=== PATIENT | male | born 1960 | race Caucasian/White ===

== ENCOUNTER → 2017-03-28 | Outpatient (REF) | payer OTHER ==
[2017-03-28 12:57] LABS: MEAN CORPUSCULAR HEMOGLOBIN 32.9 pg (27.0-33.0); MEAN CORPUSCULAR HGB CONC 34.9 g/dl (32.0-36.5); MEAN CORPUSCULAR VOLUME 94.3 fl (80.0-96.0); RED CELL DISTRIBUTION WIDTH 12.5 % (11.5-14.5); WHITE BLOOD COUNT 4.6 K/mm3 (4.0-10.0)
[2017-03-28 13:28] LABS: ALBUMIN 3.6 GM/DL (3.2-5.2); ALBUMIN/GLOBULIN RATIO 1.13 (1.00-1.93); ALKALINE PHOSPHATASE 63 U/L (45-117); ALT/SGPT 34 U/L (12-78); ANION GAP 9 MEQ/L (8-16); AST/SGOT 26 U/L (15-37); BILIRUBIN,TOTAL 0.4 MG/DL (0.2-1.0); BLOOD UREA NITROGEN 16 MG/DL (7-18); CARBON DIOXIDE LEVEL 26 MEQ/L (21-32); CHLORIDE LEVEL 108 MEQ/L (98-107); CHOLESTEROL LEVEL 187 MG/DL (<200); CREATININE FOR GFR 1.01 MG/DL (0.70-1.30); GLOMERULAR FILTRATION RATE > 60.0 (>56); GLUCOSE, FASTING 88 MG/DL (70-105); POTASSIUM SERUM 4.4 MEQ/L (3.5-5.1); SODIUM LEVEL 143 MEQ/L (136-145); TOTAL PROTEIN 6.8 GM/DL (6.4-8.2); TRIGLYCERIDES LEVEL 113 MG/DL (<150); URIC ACID 5.7 MG/DL (3.5-7.2)
[2017-03-29 11:20] LABS: HEP C VIRUS AB SCREEN MEDICARE 0.2 INDEX (<0.8)
--- NOTE | 2017-04-13 09:50 | ECWPNAD ---
PATIENT NAME: MELVIN AGUAYO : 1960 GENDER: MALE VISIT DATE: 03/28/2017 DISCHARGE DATE: 03/28/17 0000 VISIT LOCKED DATE TIME: PHYSICIAN: RICO RADER RESOURCE: LAB [facility]AS REASON FOR APPOINTMENT 1. LABS PAST MEDICAL HISTORY HYPERTENSION HYPERLIPIDEMIA GOUT - MOSTLY IN FEET OSTEOARTHRITIS RT CARPAL TUNNEL ALLERGIES ALLOPURINOL: HIVES: ALLERGY ASSESSMENTS PROSTATE CANCER SCREENING - Z12.5 (PRIMARY) GOUT, UNSPECIFIED - M10.9 HYPERLIPIDEMIA, UNSPECIFIED - E78.5 ESSENTIAL (PRIMARY) HYPERTENSION - I10 ERECTILE DYSFUNCTION, UNSPECIFIED ERECTILE DYSFUNCTION TYPE - N52.9 NEED FOR HEPATITIS C SCREENING TEST - Z11.59 TREATMENT PROSTATE CANCER SCREENING LAB: PSA SCREENING PSA 2.20 (< 4.0 - NG/ML) GOUT, UNSPECIFIED LAB: CBC WBC 4.6 (4.0-10.0 - K/MM3) RBC 4.24 (4.30-6.10 - M/MM3) HEMOGLOBIN 14.0 (14.0-18.0 - G/DL) HEMATOCRIT 40.0 (42.0-52.0 - %) MCV 94.3 (80.0-96.0 - FL) MCH 32.9 (27.0-33.0 - PG) MCHC 34.9 (32.0-36.5 - G/DL) RDW 12.5 (11.5-14.5 - %) PLATELET COUNT 268 (150-450 - K/MM3) LAB: COMPREHENSIVE METABOLIC PROFILE GLUCOSE 88 (70-105 - MG/DL) BUN 16 (7-18 - MG/DL) CREATININE 1.01 (0.70-1.30 - MG/DL) GLOMERULAR FILTRATION RATE > 60.0 (>56 - ) SODIUM 143 (136-145 - MEQ/L) POTASSIUM 4.4 (3.5-5.1 - MEQ/L) CHLORIDE 108 (98-107 - MEQ/L) CARBON DIOXIDE 26 (21-32 - MEQ/L) CALCIUM 9.0 (8.5-10.1 - MG/DL) AST/SGOT 26 (15-37 - U/L) ALT/SGPT 34 (12-78 - U/L) ALK PHOS 63 (45-117 - U/L) BILIRUBIN,TOTAL 0.4 (0.2-1.0 - MG/DL) TOTAL PROTEIN 6.8 (6.4-8.2 - GM/DL) ALBUMIN 3.6 (3.2-5.2 - GM/DL) ALB/GLOB RATIO 1.13 (1.00-1.93 - ) LAB: LIPID PANEL (CARDIAC RISK) TRIGLYCERIDES 113 (<150 - MG/DL) CHOLESTEROL 187 (<200 - MG/DL) HDL CHOLESTEROL 84 (>40 - MG/DL) LDL CHOLESTEROL 80.4 (<100 - MG/DL) VAN-GHZ-EBHWNNCUCIK 103 ( - MG/DL) CHOL/HDL RATIO 2.226 (<5 - ) LAB: MICROALBUMIN RANDOM CREATININE URINE 219.0 ( - MG/DL) UR MICROALBUMIN 7.5 ( - MG/L) YESSY/CREAT RATIO 3.4 (0.0-30.0 - MCG/MG) LAB: URIC ACID URIC ACID 5.7 (3.5-7.2 - MG/DL) HYPERLIPIDEMIA, UNSPECIFIED LAB: CBC WBC 4.6 (4.0-10.0 - K/MM3) RBC 4.24 (4.30-6.10 - M/MM3) HEMOGLOBIN 14.0 (14.0-18.0 - G/DL) HEMATOCRIT 40.0 (42.0-52.0 - %) MCV 94.3 (80.0-96.0 - FL) MCH 32.9 (27.0-33.0 - PG) MCHC 34.9 (32.0-36.5 - G/DL) RDW 12.5 (11.5-14.5 - %) PLATELET COUNT 268 (150-450 - K/MM3) LAB: COMPREHENSIVE METABOLIC PROFILE GLUCOSE 88 (70-105 - MG/DL) BUN 16 (7-18 - MG/DL) CREATININE 1.01 (0.70-1.30 - MG/DL) GLOMERULAR FILTRATION RATE > 60.0 (>56 - ) SODIUM 143 (136-145 - MEQ/L) POTASSIUM 4.4 (3.5-5.1 - MEQ/L) CHLORIDE 108 (98-107 - MEQ/L) CARBON DIOXIDE 26 (21-32 - MEQ/L) CALCIUM 9.0 (8.5-10.1 - MG/DL) AST/SGOT 26 (15-37 - U/L) ALT/SGPT 34 (12-78 - U/L) ALK PHOS 63 (45-117 - U/L) BILIRUBIN,TOTAL 0.4 (0.2-1.0 - MG/DL) TOTAL PROTEIN 6.8 (6.4-8.2 - GM/DL) ALBUMIN 3.6 (3.2-5.2 - GM/DL) ALB/GLOB RATIO 1.13 (1.00-1.93 - ) LAB: LIPID PANEL (CARDIAC RISK) TRIGLYCERIDES 113 (<150 - MG/DL) CHOLESTEROL 187 (<200 - MG/DL) HDL CHOLESTEROL 84 (>40 - MG/DL) LDL CHOLESTEROL 80.4 (<100 - MG/DL) RRW-OAT-FTZEDOSBOTE 103 ( - MG/DL) CHOL/HDL RATIO 2.226 (<5 - ) LAB: MICROALBUMIN RANDOM CREATININE URINE 219.0 ( - MG/DL) UR MICROALBUMIN 7.5 ( - MG/L) YESSY/CREAT RATIO 3.4 (0.0-30.0 - MCG/MG) LAB: URIC ACID URIC ACID 5.7 (3.5-7.2 - MG/DL) ESSENTIAL (PRIMARY) HYPERTENSION LAB: CBC WBC 4.6 (4.0-10.0 - K/MM3) RBC 4.24 (4.30-6.10 - M/MM3) HEMOGLOBIN 14.0 (14.0-18.0 - G/DL) HEMATOCRIT 40.0 (42.0-52.0 - %) MCV 94.3 (80.0-96.0 - FL) MCH 32.9 (27.0-33.0 - PG) MCHC 34.9 (32.0-36.5 - G/DL) RDW 12.5 (11.5-14.5 - %) PLATELET COUNT 268 (150-450 - K/MM3) LAB: COMPREHENSIVE METABOLIC PROFILE GLUCOSE 88 (70-105 - MG/DL) BUN 16 (7-18 - MG/DL) CREATININE 1.01 (0.70-1.30 - MG/DL) GLOMERULAR FILTRATION RATE > 60.0 (>56 - ) SODIUM 143 (136-145 - MEQ/L) POTASSIUM 4.4 (3.5-5.1 - MEQ/L) CHLORIDE 108 (98-107 - MEQ/L) CARBON DIOXIDE 26 (21-32 - MEQ/L) CALCIUM 9.0 (8.5-10.1 - MG/DL) AST/SGOT 26 (15-37 - U/L) ALT/SGPT 34 (12-78 - U/L) ALK PHOS 63 (45-117 - U/L) BILIRUBIN,TOTAL 0.4 (0.2-1.0 - MG/DL) TOTAL PROTEIN 6.8 (6.4-8.2 - GM/DL) ALBUMIN 3.6 (3.2-5.2 - GM/DL) ALB/GLOB RATIO 1.13 (1.00-1.93 - ) LAB: LIPID PANEL (CARDIAC RISK) TRIGLYCERIDES 113 (<150 - MG/DL) CHOLESTEROL 187 (<200 - MG/DL) HDL CHOLESTEROL 84 (>40 - MG/DL) LDL CHOLESTEROL 80.4 (<100 - MG/DL) TXB-UDW-MTRPYQSRUDI 103 ( - MG/DL) CHOL/HDL RATIO 2.226 (<5 - ) LAB: MICROALBUMIN RANDOM CREATININE URINE 219.0 ( - MG/DL) UR MICROALBUMIN 7.5 ( - MG/L) YESSY/CREAT RATIO 3.4 (0.0-30.0 - MCG/MG) LAB: URIC ACID URIC ACID 5.7 (3.5-7.2 - MG/DL) NEED FOR HEPATITIS C SCREENING TEST LAB: HEPATITIS C VIRUS AB SCRN MEDICARE HEP C VIRUS AB SCRN MEDICARE 0.2 (<0.8 - INDEX) PROCEDURE CODES 22743 NO CHARGE VISIT DISPOSITION & COMMUNICATION ELECTRONICALLY SIGNED BY HAYLEE RIVERO ON 04/11/2017 AT 08:42 AM EDT DISCLAIMER : THIS IS A VISIT SUMMARY EXTRACTED FROM THE [facility] CHART. IT IS NOT A COPY OF THE [facility] PROGRESS NOTE. [place]
== END ==
LOC: M SFHCADAM 08:09
PROVIDERS: ATTEND Physician Assistant
DX: M10.9 Gout, unspecified (principal); E78.5 Hyperlipidemia, unspecified; I10 Essential (primary) hypertension; Z12.5 Encounter for screening for malignant neoplasm of prostate; Z11.59 Encounter for screening for other viral diseases
CPT/HCPCS: 80053; 80061; 82043; 84550; 85027; G0103; G0472

== ENCOUNTER → 2017-08-25 | Outpatient (REF) | payer OTHER ==
[2017-08-25 20:15] LABS: FREE T4 0.81 NG/DL (0.76-1.46)
== END ==
LOC: M SFHCADAM 12:01
DX: F41.0 Panic disorder [episodic paroxysmal anxiety] (principal)

== ENCOUNTER → 2017-08-30 | Outpatient (CLI) | payer OTHER | LOC: M RAD 12:54 | DX: N63.0 Unspecified lump in unspecified breast (principal) | CPT/HCPCS: 77066 ==

== ENCOUNTER 2017-11-23 11:02 | Inpatient (IN) | payer OTHER ==
[2017-11-23 12:36] LABS: HEMATOCRIT 42.8 % (42.0-52.0); HEMOGLOBIN 14.7 g/dl (13.5-17.5); MEAN CORPUSCULAR HEMOGLOBIN 31.8 pg (27.0-33.0); MEAN CORPUSCULAR HGB CONC 34.3 g/dl (32.0-36.5); MEAN CORPUSCULAR VOLUME 92.6 fl (80.0-96.0); PLATELET COUNT, AUTOMATED 224 10^3/uL (150-450); RED BLOOD COUNT 4.62 10^6/uL (4.30-6.10); RED CELL DISTRIBUTION WIDTH 12.8 % (11.5-14.5); WHITE BLOOD COUNT 8.6 10^3/uL (4.0-10.0)
[2017-11-23 12:46] LABS: INR 0.95; PROTHROMBIN TIME 12.8 SECONDS (12.4-14.5)
[2017-11-23 13:23] LABS: ALBUMIN/GLOBULIN RATIO 1.14 (1.00-1.93); ALKALINE PHOSPHATASE 72 U/L (45-117); ALT/SGPT 26 U/L (12-78); ANION GAP 8 MEQ/L (8-16); AST/SGOT 22 U/L (7-37); BILIRUBIN,TOTAL 0.4 MG/DL (0.2-1.0); BLOOD UREA NITROGEN 13 MG/DL (7-18); CALCIUM LEVEL 9.3 MG/DL (8.5-10.1); CARBON DIOXIDE LEVEL 24 MEQ/L (21-32); CHLORIDE LEVEL 107 MEQ/L (98-107); CPK CREATINE PHOSPHOKINASE 122 U/L (39-308); CREATININE FOR GFR 1.07 MG/DL (0.70-1.30); GLOMERULAR FILTRATION RATE > 60.0 (>56); GLUCOSE, FASTING 103 MG/DL (70-100); MAGNESIUM LEVEL 2.3 MG/DL (1.8-2.4); POTASSIUM SERUM 4.4 MEQ/L (3.5-5.1); SODIUM LEVEL 139 MEQ/L (136-145); TOTAL PROTEIN 7.5 GM/DL (6.4-8.2); TROPONIN I < 0.02 NG/ML (< 0.10)
[2017-11-23 13:28] LABS: CK-MB VALUE MASS 2.7 NG/ML (<3.6); FREE T4 0.91 NG/DL (0.76-1.46); MB/CK RELATIVE INDEX 2.21 (< OR =4)
[2017-11-23] MEDS: ASPIRIN 325 MG TAB PO (14:10)
[2017-11-23] MEDS: METOPROLOL TART 25 MG TABLET PO (14:11)
[2017-11-23] MEDS: ENOXAPARIN 40 MG/0.4 ML SYRINGE (J1650) SC (14:13)
[2017-11-23 17:53] LABS: CK-MB VALUE MASS 2.4 NG/ML (<3.6); CPK CREATINE PHOSPHOKINASE 111 U/L (39-308); MB/CK RELATIVE INDEX 2.16 (< OR =4); TROPONIN I < 0.02 NG/ML (< 0.10)
[2017-11-23] MEDS ORDERED: SLF 3 ML SYR IV (20:30)
[2017-11-23] MEDS: APIXABAN 5 MG TAB (ELIQUIS) PO (20:47)
[2017-11-23] MEDS: METOPROLOL SUCC (TopROL XL) 50MG **XL** TAB PO (20:47)
[2017-11-23] MEDS: SLF 3 ML SYR IV (21:31)
[2017-11-24 01:15] LABS: CPK CREATINE PHOSPHOKINASE 90 U/L (39-308); MB/CK RELATIVE INDEX 2.22 (< OR =4); TROPONIN I < 0.02 NG/ML (< 0.10)
[2017-11-24] MEDS: SLF 3 ML SYR IV (05:46)
[2017-11-24 05:55] LABS: HEMOGLOBIN 13.9 g/dl (13.5-17.5); MEAN CORPUSCULAR HEMOGLOBIN 31.7 pg (27.0-33.0); MEAN CORPUSCULAR HGB CONC 33.9 g/dl (32.0-36.5); MEAN CORPUSCULAR VOLUME 93.6 fl (80.0-96.0); PLATELET COUNT, AUTOMATED 212 10^3/uL (150-450); RED BLOOD COUNT 4.38 10^6/uL (4.30-6.10); RED CELL DISTRIBUTION WIDTH 12.6 % (11.5-14.5); WHITE BLOOD COUNT 8.5 10^3/uL (4.0-10.0)
[2017-11-24 06:12] LABS: ANION GAP 7 MEQ/L (8-16); BLOOD UREA NITROGEN 14 MG/DL (7-18); CALCIUM LEVEL 8.9 MG/DL (8.5-10.1); CARBON DIOXIDE LEVEL 25 MEQ/L (21-32); CHLORIDE LEVEL 108 MEQ/L (98-107); CREATININE FOR GFR 1.07 MG/DL (0.70-1.30); GLOMERULAR FILTRATION RATE > 60.0 (>56); GLUCOSE, FASTING 99 MG/DL (70-100); SODIUM LEVEL 140 MEQ/L (136-145)
[2017-11-24] MEDS: LOSARTAN 50 MG TAB PO (09:20)
[2017-11-24] MEDS: METOPROLOL SUCC (TopROL XL) 50MG **XL** TAB PO (09:21)
[2017-11-24] MEDS: APIXABAN 5 MG TAB (ELIQUIS) PO (09:21)
== END 2017-11-24 12:50 | disposition home or self-care (01) | DRG 310 ==
LOC: M PCU 11:02
DX: I48.92 Unspecified atrial flutter (principal); I10 Essential (primary) hypertension; E66.9 Obesity, unspecified; M10.9 Gout, unspecified; F40.240 Claustrophobia; Z79.899 Other long term (current) drug therapy; Z87.891 Personal history of nicotine dependence; Z68.33 Body mass index [BMI] 33.0-33.9, adult

== ENCOUNTER 2017-12-22 08:00 | Day surgery (SDC) | payer OTHER ==
[~2017-12-22 08:00] MED LIST: LIDOCAINE 2% INJ 100 MG/5 ML SDV (FOR ANES.) As Ordered; PROPOFOL 200 MG/20 ML VIAL As Ordered
[2017-12-22] MEDS: LR 1,000 ML IV (08:15)
== END 2017-12-22 09:57 | disposition home or self-care (01) ==
LOC: M SDC 08:00
DX: I48.3 Typical atrial flutter (principal); I48.91 Unspecified atrial fibrillation; I10 Essential (primary) hypertension; Z87.891 Personal history of nicotine dependence; Z79.02 Long term (current) use of antithrombotics/antiplatelets; Z79.899 Other long term (current) drug therapy
CPT/HCPCS: 92960

== ENCOUNTER 2018-11-17 09:00 | Emergency (ER) | payer OTHER ==
[~2018-11-17] VITALS: Ht 177.8 cm; Wt 108.3 kg
[~2018-11-17 09:00] MED LIST changes: +CETI10TA PO; +COLC1TAB13 PO; +COZA50TA PO; +ELIQ5TAB PO; +FEBU40TA PO; +INDO50CA11 PO; -LIDOCAINE 2% INJ 100 MG/5 ML SDV (FOR ANES.) As Ordered; +LORA-243 PO; +LOSA25TA14 PO; +METO1TAB7 PO; -PROPOFOL 200 MG/20 ML VIAL As Ordered
[2018-11-17] MEDS ORDERED: ONDANSETRON 4MG/2ML VIAL (J2405) IV ONE (09:45)
[2018-11-17] MEDS ORDERED: MORPHINE 2 MG/ML 1ML SYRINGE (J2270) IV PRN (09:45)
--- NOTE | 2018-11-17 09:55 | REP ---
Portable chest x-ray: Single sitting AP view. History: Chest pain. No comparison views. Findings: The heart is mildly enlarged. Pulmonary vasculature is not increased. Lung pena are clear. Pleural angles are sharp. There are old healed rib fractures on the right and mild bilateral benign pleural thickening is seen. Impression: Cardiomegaly. Otherwise no acute disease. Old healed rib fractures on the right. Electronically Signed by Davidson Smith MD 11/17/2018 09:48 A
[2018-11-17 10:19] LABS: BASO % 0.3 % (0.0-1.0); EOS % 0.1 % (0.0-3.0); HEMATOCRIT 46.9 % (42.0-52.0); HEMOGLOBIN 16.4 g/dl (13.5-17.5); LYMPH # 1.8 10^3/uL (1.5-4.5); MEAN CORPUSCULAR HEMOGLOBIN 33.3 pg (27.0-33.0); MEAN CORPUSCULAR VOLUME 95.3 fl (80.0-96.0); MONO # 1.8 10^3/uL (0.0-0.8); MONO % 11.2 % (0.0-5.0); NEUTROPHILS # 12.3 10^3/uL (1.8-7.7); NEUTROPHILS % 76.9 % (36.0-66.0); PLATELET COUNT, AUTOMATED 249 10^3/uL (150-450); RED BLOOD COUNT 4.92 10^6/uL (4.30-6.10)
[2018-11-17 10:43] LABS: BLOOD UREA NITROGEN 11 MG/DL (7-18); CALCIUM LEVEL 9.8 MG/DL (8.5-10.1); CARBON DIOXIDE LEVEL 23 MEQ/L (21-32); CHLORIDE LEVEL 102 MEQ/L (98-107); CK-MB VALUE MASS < 1.0 NG/ML (<3.6); CPK CREATINE PHOSPHOKINASE 58 U/L (39-308); CREATININE FOR GFR 1.14 MG/DL (0.70-1.30); GLOMERULAR FILTRATION RATE > 60.0 (>56); GLUCOSE, FASTING 118 MG/DL (70-100); MAGNESIUM LEVEL 1.8 MG/DL (1.8-2.4); MB/CK RELATIVE INDEX 1.72 (< OR =4); POTASSIUM SERUM 4.3 MEQ/L (3.5-5.1); SODIUM LEVEL 135 MEQ/L (136-145); TROPONIN I < 0.02 NG/ML (< 0.10); URIC ACID 6.7 MG/DL (3.5-7.2)
[2018-11-17 10:50] LABS: AMPHETAMINES LEVEL URINE NEGATIVE (NEGATIVE); BARBITURATES URINE NEGATIVE (NEGATIVE); BENZODIAZEPINES URINE NEGATIVE (NEGATIVE); CANNABINOIDS URINE NEGATIVE (NEGATIVE); COCAINE METABOLITE URINE NEGATIVE (NEGATIVE); METHADONE URINE NEGATIVE (NEGATIVE); OPIATES URINE NEGATIVE (NEGATIVE); PHENCYCLIDINE URINE NEGATIVE (NEGATIVE)
[2018-11-17 10:52] LABS: ETHYL ALCOHOL (ETHANOL) < 0.003 % (0.000-0.010)
--- NOTE | 2018-11-17 11:01 | REP ---
RIGHT ELBOW SERIES: For views portable exam. HISTORY: Traumatic bursitis versus gout. FINDINGS: Four views of the right elbow are presented. There is phong-olecranon soft tissue swelling. Olecranon spurring is seen. There is osteoarthritic spurring at the coronoid process. Lateral epicondylar spurring is also noted. No soft tissue calcification is seen. There is no evidence of joint effusion. IMPRESSION: Phong-olecranon soft tissue swelling and olecranon process spurring. No erosive change is seen. Electronically Signed by Davidson Smith MD 11/17/2018 12:20 P
[2018-11-17] MEDS ORDERED: METO50TA7 PO ×2 (11:40→15:17)
[2018-11-17] MEDS ORDERED: METOPROLOL TART 50 MG TAB PO ONE (11:45)
[2018-11-17] MEDS: METOPROLOL 5 MG/5 ML VIAL IV SCH ×3 (11:57→12:21)
[2018-11-17 12:21] VITALS: BP 121/84
[2018-11-17] MEDS ORDERED: DIGOXIN INJ 0.5 MG/2 ML AMP (J1160) IV ONE (13:00)
[2018-11-17] MEDS ORDERED: NS 1,000 ML IV SCH (14:15)
[2018-11-17] MEDS ORDERED: PROPOFOL 200 MG/20 ML VIAL IV PRN (14:15)
[2018-11-17] MEDS ORDERED: KETOROLAC 30 MG/ML VIAL (J1885) IV ONE (15:15)
[2018-11-17] MEDS ORDERED: PERCOCET 5MG/325MG TAB PO ONE (15:15)
[2018-11-17] MEDS ORDERED: VITAD1000T PO (15:17)
[2018-11-17] MEDS ORDERED: VITATAB73 PO (15:17)
[2018-11-17] MEDS ORDERED: LOSA50TA88 PO (15:17)
[2018-11-17] MEDS ORDERED: ELIQ5TAB PO (15:17)
[2018-11-17] MEDS ORDERED: NORC1TAB7 PO (15:33)
[2018-11-17] MEDS ORDERED: METO100T5 PO (15:33)
[2018-11-17 15:45] VITALS: BP 125/73
--- NOTE | 2018-11-17 17:14 | ECGEPIP ---
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
--- NOTE | 2018-11-19 05:42 | ECGEPIP ---
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
== END 2018-11-17 16:02 | disposition home or self-care (01) ==
LOC: M ED 09:00
DX: I48.92 Unspecified atrial flutter (principal); I10 Essential (primary) hypertension; M70.21 Olecranon bursitis, right elbow; M10.061 Idiopathic gout, right knee; M10.062 Idiopathic gout, left knee; M10.071 Idiopathic gout, right ankle and foot; M10.072 Idiopathic gout, left ankle and foot; Z98.890 Other specified postprocedural states; Z79.899 Other long term (current) drug therapy; Z79.01 Long term (current) use of anticoagulants
CPT/HCPCS: 71045; 73080; 80048; 80307; 82550; 82553; 83735; 84443; 84484; 84550; 85025; 93005; 93041; 94760; 96374; 96375; 99285; G0480; J1160; J1885; J2270; J2405

== ENCOUNTER → 2019-07-08 | Outpatient (REF) | payer OTHER ==
[~2019-07-08] MED LIST changes: +CHOL100029 PO; -FEBU40TA PO; +FEBU40TA4 PO; -INDO50CA11 PO; +INDO50CA91 PO; +LOSA50TA88 PO; +METO100T5 PO; +METO50TA7 PO; +NORC1TAB7 PO; +VITATAB73 PO
[2019-07-08 16:52] LABS: HEMATOCRIT 47.6 % (42.0-52.0); HEMOGLOBIN 16.3 g/dl (13.5-17.5); MEAN CORPUSCULAR HEMOGLOBIN 34.5 pg (27.0-33.0); MEAN CORPUSCULAR HGB CONC 34.2 g/dl (32.0-36.5); MEAN CORPUSCULAR VOLUME 100.8 fl (80.0-96.0); PLATELET COUNT, AUTOMATED 210 10^3/uL (150-450); RED BLOOD COUNT 4.72 10^6/uL (4.30-6.10); WHITE BLOOD COUNT 10.2 10^3/uL (4.0-10.0)
[2019-07-08 17:10] LABS: HEMOGLOBIN A1c 6.1 %
[2019-07-08 17:17] LABS: ALBUMIN 3.6 GM/DL (3.2-5.2); ALT/SGPT 48 U/L (12-78); BILIRUBIN,TOTAL 0.7 MG/DL (0.2-1.0); BLOOD UREA NITROGEN 11 MG/DL (7-18); CALCIUM LEVEL 9.3 MG/DL (8.5-10.1); CARBON DIOXIDE LEVEL 22 MEQ/L (21-32); CHLORIDE LEVEL 99 MEQ/L (98-107); CREATININE FOR GFR 1.09 MG/DL (0.70-1.30); FOLATE 2.5 NG/ML; FREE T4 1.09 NG/DL (0.76-1.46); GLOMERULAR FILTRATION RATE > 60.0 (>56); GLUCOSE, FASTING 93 MG/DL (70-100); MAGNESIUM LEVEL 2.2 MG/DL (1.8-2.4); POTASSIUM SERUM 4.4 MEQ/L (3.5-5.1); SODIUM LEVEL 134 MEQ/L (136-145); TOTAL PROTEIN 7.2 GM/DL (6.4-8.2); VITAMIN B12 LEVEL 292 PG/ML
[2019-07-12 00:06] LABS: ANA (HEP2) Negative (.)
== END ==
LOC: M SFHCADAM 12:01
PROVIDERS: ATTEND Physician Assistant
DX: I48.92 Unspecified atrial flutter (principal); F10.10 Alcohol abuse, uncomplicated; G62.9 Polyneuropathy, unspecified

== ENCOUNTER → 2019-07-19 | Outpatient (CLI) | payer OTHER ==
[~2019-07-19] MED LIST changes: +ISOVUE-370 76% 100ML VIAL (Q9967) As Ordered ONE
--- NOTE | 2019-07-19 19:02 | REP ---
CT chest with IV contrast: History: Dyspnea on exertion. No comparison chest CT. CT contrast dose: 75 mL of intravenous Isovue 370. Findings: Preliminary digital elevator dispatcher radiograph demonstrates evidence of cardiomegaly unchanged from comparison chest x-ray November 17, 2018. There is good opacification of the pulmonary arterial tree and the thoracic aorta. No evidence of aneurysm, dissection, or pulmonary embolus is seen. No hilar or mediastinal mass or adenopathy is observed. No pleural or pericardial effusion is appreciated. There is a large amount of epicardial and intrapericardial fat which magnifies the cardiac silhouette radiographically. The left atrium is felt to be somewhat enlarged measuring 4.3 cm in AP dimension at the level of the left ventricular outflow tract. There is some left coronary artery vascular calcification. There is no evidence of infiltrate, mass, or significant pulmonary nodule. There are degenerative changes in the thoracic spine. There are old healed rib fractures noted on the left laterally. There is moderate fatty infiltration of the liver. The visualized upper abdominal structures are otherwise unremarkable. Impression: There is a prominent amount of intrapericardial and epicardial fat surrounding the heart. There is left atrial enlargement. There are old healed rib fractures. Moderate fatty liver changes. Otherwise no acute disease. Electronically Signed by Davidson Smith MD 07/20/2019 05:37 A
== END ==
LOC: M RAD 13:40
PROVIDERS: ATTEND Physician Assistant
DX: I51.7 Cardiomegaly (principal); R06.09 Other forms of dyspnea; K76.0 Fatty (change of) liver, not elsewhere classified
CPT/HCPCS: 71260; Q9967

== ENCOUNTER → 2019-08-13 | Outpatient (REF) | payer OTHER ==
[~2019-08-13] MED LIST changes: -ISOVUE-370 76% 100ML VIAL (Q9967) As Ordered ONE
[2019-08-13 15:35] LABS: FREE T4 1.21 NG/DL (0.76-1.46); RHEUMATOID FACTOR QUANT < 10.0 IU/ML (<15.0)
[2019-08-13 15:36] LABS: FOLATE 3.8 NG/ML; VITAMIN B12 LEVEL 584 PG/ML
[2019-08-13 15:41] LABS: HEMOGLOBIN A1c 6.2 %
[2019-08-13 15:48] LABS: DRVV SCREEN 37.6 SEC
[2019-08-13 15:51] LABS: PTT LUPUS TYPE ANTICOAG SCREEN 0.9 (0-1.2)
== END ==
LOC: M LABDRWAD 14:52 → M LAB REF 14:52
PROVIDERS: ATTEND Psychiatry & Neurology Neurology
DX: G62.9 Polyneuropathy, unspecified (principal); M79.671 Pain in right foot; M79.672 Pain in left foot

== ENCOUNTER → 2020-04-30 | Outpatient (REF) | payer OTHER ==
[~2020-04-30] MED LIST changes: +ECOT81TA5 PO; +METO25TA4 PO
[2020-04-30 12:27] LABS: HEMATOCRIT 48.1 % (42.0-52.0); HEMOGLOBIN 15.9 g/dl (13.5-17.5); MEAN CORPUSCULAR HGB CONC 33.1 g/dl (32.0-36.5); MEAN CORPUSCULAR VOLUME 99.8 fl (80.0-96.0); PLATELET COUNT, AUTOMATED 218 10^3/uL (150-450); RED BLOOD COUNT 4.82 10^6/uL (4.30-6.10); WHITE BLOOD COUNT 12.7 10^3/uL (4.0-10.0)
[2020-04-30 13:02] LABS: HEMOGLOBIN A1c 5.9 %
[2020-04-30 13:05] LABS: ALBUMIN 3.5 GM/DL (3.2-5.2); ALT/SGPT 61 U/L (12-78); BILIRUBIN,TOTAL 0.7 MG/DL (0.2-1.0); BLOOD UREA NITROGEN 6 MG/DL (7-18); CALCIUM LEVEL 9.7 MG/DL (8.5-10.1); CARBON DIOXIDE LEVEL 23 MEQ/L (21-32); CHLORIDE LEVEL 102 MEQ/L (98-107); CHOLESTEROL LEVEL 196 MG/DL (<200); CHOLESTEROL RISK RATIO 3.629 (<5); CREATININE FOR GFR 1.04 MG/DL (0.70-1.30); GLOMERULAR FILTRATION RATE > 60.0 (>56); GLUCOSE, FASTING 116 MG/DL (70-100); HDL CHOLESTEROL 54 MG/DL (>40); LDL CHOLESTEROL 111 MG/DL (<100); NON-HDL-C 142 MG/DL; POTASSIUM SERUM 4.3 MEQ/L (3.5-5.1); SODIUM LEVEL 135 MEQ/L (136-145); TOTAL PROTEIN 6.9 GM/DL (6.4-8.2); TRIGLYCERIDES LEVEL 155 MG/DL (<150)
== END ==
LOC: M SFHCADAM 11:21
PROVIDERS: ATTEND Physician Assistant
DX: R73.01 Impaired fasting glucose (principal); F10.10 Alcohol abuse, uncomplicated; E78.5 Hyperlipidemia, unspecified; Z12.5 Encounter for screening for malignant neoplasm of prostate

== ENCOUNTER 2020-05-07 12:10 | Emergency (ER) | payer OTHER ==
[~2020-05-07] VITALS: Ht 177.8 cm; Wt 112.0 kg
[~2020-05-07 12:10] MED LIST changes: -ECOT81TA5 PO; -METO25TA4 PO
[2020-05-07] MEDS ORDERED: ECOT81TA5 PO (12:24)
[2020-05-07 12:48] LABS: BASO # 0.1 10^3/uL (0.0-0.2); BASO % 0.4 % (0.0-1.0); EOS % 0.1 % (0.0-3.0); HEMOGLOBIN 16.4 g/dl (13.5-17.5); LYMPH # 1.4 10^3/uL (1.5-5.0); LYMPH % 10.4 % (24.0-44.0); MEAN CORPUSCULAR HEMOGLOBIN 32.9 pg (27.0-33.0); MEAN CORPUSCULAR HGB CONC 32.8 g/dl (32.0-36.5); MEAN CORPUSCULAR VOLUME 100.2 fl (80.0-96.0); MONO # 0.9 10^3/uL (0.0-0.8); MONO % 6.9 % (0.0-5.0); NEUTROPHILS # 10.9 10^3/uL (1.5-8.5); NEUTROPHILS % 81.7 % (36.0-66.0); PLATELET COUNT, AUTOMATED 257 10^3/uL (150-450); RED BLOOD COUNT 4.99 10^6/uL (4.30-6.10); WHITE BLOOD COUNT 13.3 10^3/uL (4.0-10.0)
[2020-05-07 12:59] LABS: INR 1.12; PROTHROMBIN TIME 14.6 SECONDS (12.5-14.3)
[2020-05-07 13:00] LABS: PARTIAL THROMBOPLASTIN TIME 34.1 SECONDS (24.2-38.5)
--- NOTE | 2020-05-07 13:04 | REP ---
INDICATION: CHEST PAIN. COMPARISON: 11/17/2018. TECHNIQUE: SINGLE PORTABLE AP VIEW OF THE CHEST WAS PERFORMED. FINDINGS: There is mild to moderate cardiomegaly unchanged. The mediastinal silhouette is unchanged. There is again mild elevation of the right hemidiaphragm. There is mild fibrotic change in the right lung base. I see no acute infiltrate or pulmonary edema. IMPRESSION: No acute infiltrate. Cardiomegaly. <Electronically signed by Ilya Cohen > 05/07/20 1300
[2020-05-07 13:18] LABS: ALBUMIN 3.3 GM/DL (3.2-5.2); ALT/SGPT 56 U/L (12-78); BILIRUBIN,DIRECT 0.3 MG/DL (0.0-0.2); BILIRUBIN,TOTAL 0.7 MG/DL (0.2-1.0); BLOOD UREA NITROGEN 8 MG/DL (7-18); CARBON DIOXIDE LEVEL 18 MEQ/L (21-32); CHLORIDE LEVEL 103 MEQ/L (98-107); CK-MB VALUE MASS 1.7 NG/ML (<3.6); CPK CREATINE PHOSPHOKINASE 77 U/L (39-308); CREATININE FOR GFR 1.16 MG/DL (0.70-1.30); GLOMERULAR FILTRATION RATE > 60.0 (>56); GLUCOSE, FASTING 185 MG/DL (70-100); MAGNESIUM LEVEL 1.9 MG/DL (1.8-2.4); MB/CK RELATIVE INDEX 2.21 (< OR =4); POTASSIUM SERUM 3.9 MEQ/L (3.5-5.1); SODIUM LEVEL 135 MEQ/L (136-145); TOTAL PROTEIN 6.6 GM/DL (6.4-8.2); TROPONIN I < 0.02 NG/ML (< 0.10)
[2020-05-07 13:19] LABS: ETHYL ALCOHOL (ETHANOL) 0.176 % (0.000-0.010); FREE T4 1.21 NG/DL (0.76-1.46); LIPASE 132 U/L (73-393)
[2020-05-07] MEDS ORDERED: METOPROLOL TART 25 MG TABLET PO ONE (13:45)
[2020-05-07 14:29] VITALS: BP 113/76
[2020-05-07] MEDS ORDERED: METO25TA4 PO (15:55)
[2020-05-07 16:23] VITALS: BP 117/75
--- NOTE | 2020-05-08 07:08 | ECGEPIP ---
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
== END 2020-05-07 16:25 | disposition home or self-care (01) ==
LOC: M ED 12:10
DX: I48.91 Unspecified atrial fibrillation (principal); I48.92 Unspecified atrial flutter; F10.129 Alcohol abuse with intoxication, unspecified; I51.7 Cardiomegaly; E78.5 Hyperlipidemia, unspecified; G47.33 Obstructive sleep apnea (adult) (pediatric); Z87.891 Personal history of nicotine dependence; Z79.82 Long term (current) use of aspirin; Z79.899 Other long term (current) drug therapy
CPT/HCPCS: 36415; 71045; 80048; 80076; 82550; 82553; 83690; 83735; 84439; 84443; 84484; 85025; 85610; 85730; 93005; 93041; 94760; 99285; G0480

== ENCOUNTER → 2020-05-07 | Outpatient (REF) | payer OTHER | LOC: M SFHCADAM 10:02 | PROVIDERS: ATTEND Physician Assistant | DX: G62.9 Polyneuropathy, unspecified (principal); F10.10 Alcohol abuse, uncomplicated; K76.0 Fatty (change of) liver, not elsewhere classified; I48.91 Unspecified atrial fibrillation; I50.9 Heart failure, unspecified ==

== ENCOUNTER → 2020-05-12 | Outpatient (REF) | payer OTHER ==
[~2020-05-12] MED LIST changes: +ECOT81TA5 PO; +METO25TA4 PO
[2020-05-12 13:04] LABS: INR 1.1; PROTHROMBIN TIME 14.4 SECONDS (12.5-14.3)
[2020-05-12 13:27] LABS: NT-PRO BNP 1019 PG/ML (<125)
[2020-05-12 13:33] LABS: FOLATE > 24.0 NG/ML; VITAMIN B12 LEVEL 628 PG/ML
[2020-05-12 13:44] LABS: HEPATITIS B SURFACE ANTIGEN NEGATIVE (NEGATIVE)
[2020-05-12 14:11] LABS: HEPATITIS B CORE ANTIBODY IGM NEGATIVE (NEGATIVE); HEPATITIS C VIRUS ABY INDEX 0.1 INDEX (<0.8)
[2020-05-12 14:14] LABS: HEPATITIS A ANTIBODY IGM NEGATIVE (NEGATIVE)
== END ==
LOC: M SFHCADAM 09:33
PROVIDERS: ATTEND Physician Assistant
DX: F10.10 Alcohol abuse, uncomplicated (principal); G62.9 Polyneuropathy, unspecified; K76.0 Fatty (change of) liver, not elsewhere classified; I48.91 Unspecified atrial fibrillation; I50.9 Heart failure, unspecified

== ENCOUNTER → 2020-05-21 | Outpatient (CLI) | payer OTHER ==
--- NOTE | 2020-05-21 08:36 | REP ---
INDICATION: ETOH ABUSE, FATTY LIVER. COMPARISON: CT chest 07/19/2019 showing much of the liver TECHNIQUE: Right upper quadrant ultrasound FINDINGS: Sonographic evaluation of the right upper quadrant shows the liver diffusely hyperechoic and homogeneous fashion. It is quite difficult to penetrate the far wall of this fatty liver. No focal hepatic mass, intrahepatic biliary dilatation nor adjacent ascites. Gallbladder is distended with a length up to 11 cm AP diameter of 4.3 cm. Wall thickness is 2.4 mm no stone, sludge or pericholecystic fluid. Common duct is 4 mm without a stone or dilatation. Pancreas is completely obscured by gas shadowing and cannot be evaluated. The right kidney 10.5 x 4.4 x 4.2 cm. No hydronephrosis, stone or mass visible.. IMPRESSION: 1. Diffuse fatty infiltration of the liver without focal hepatic mass or intrahepatic biliary dilatation. It is extremely difficult to penetrate this fatty liver to its far wall, therefore poorly seen in that region.. 2. Gallbladder distended to 11 x 4.3 cm but with normal wall thickness and no stone, sludge or pericholecystic fluid. No sonographic Gandhi sign. 3. Common duct 4 mm without a stone. Pancreas is obscured by gas shadowing. The right kidney was unremarkable. <Electronically signed by John Amezcua > 05/21/20 4208
== END ==
LOC: M RAD 07:43
PROVIDERS: ATTEND Physician Assistant
DX: F10.10 Alcohol abuse, uncomplicated (principal); K76.0 Fatty (change of) liver, not elsewhere classified

== ENCOUNTER → 2020-08-17 | Outpatient (REF) | payer OTHER ==
[~2020-08-17] MED LIST changes: +COLC0.6T47 PO; -COLC1TAB13 PO
[2020-08-20 04:09] LABS: PSA % FREE 6.4 % (.); PSA FREE 0.27 ng/mL; PSA TOTAL 4.2 ng/mL (0.0-4.0)
== END ==
LOC: M LABSMT 10:28
PROVIDERS: ATTEND Nurse Practitioner Women's Health
DX: R97.20 Elevated prostate specific antigen [PSA] (principal)

== ENCOUNTER → 2020-11-10 | Outpatient (REF) | payer OTHER ==
[2020-11-10 13:41] LABS: INR 1.17; PROTHROMBIN TIME 15.2 SECONDS (12.5-14.3)
== END ==
LOC: M LABDRWAD 13:00
PROVIDERS: ATTEND Physician Assistant
DX: R06.02 Shortness of breath (principal)

== ENCOUNTER → 2020-11-10 | Outpatient (REF) | payer OTHER ==
[2020-11-11 21:14] LABS: PSA TOTAL 1.7 ng/mL (0.0-4.0)
== END ==
LOC: M SFHCADAM 11:24
PROVIDERS: ATTEND Nurse Practitioner Women's Health
DX: R97.20 Elevated prostate specific antigen [PSA] (principal)

== ENCOUNTER → 2021-01-01 | Outpatient (CLI) | payer OTHER ==
--- NOTE | 2021-01-01 10:44 | REP ---
INDICATION: EVAL FOR CIRRHOSIS. COMPARISON: Comparison sonography May 21, 2020.. TECHNIQUE: Right upper quadrant abdominal sonography. FINDINGS: Scanning through the right upper quadrant of the abdomen demonstrates a poor insonation of the liver consistent with fatty infiltration. This is unchanged from the prior study. No focal liver lesion is seen. The liver does not appear to be enlarged. A moderately distended gallbladder is again seen measuring up to 15.1 cm in diameter consistent with hydrops. No stone or polyp is seen. No wall thickening or tenderness is observed. CBD is normal measuring 0.6 cm in greatest diameter. Limited views of pancreas show no abnormality. The lower pole of the right kidney is not well seen due to bowel gas. No right renal abnormality is seen. Right renal dimensions are measured 11.3 x 4.7 x 5.0 cm. IMPRESSION: Evidence of fatty infiltration of the liver. The distended gallbladder again seen without evidence of stone or polyp. Otherwise negative. <Electronically signed by Darius Smith > 01/01/21 1799
== END ==
LOC: M RAD 09:19
PROVIDERS: ATTEND Physician Assistant
DX: R06.02 Shortness of breath (principal)

== ENCOUNTER → 2021-01-15 | Outpatient (REF) | payer OTHER ==
[2021-01-15 12:56] LABS: HEMATOCRIT 35.6 % (42.0-52.0); HEMOGLOBIN 11.9 g/dl (13.5-17.5); MEAN CORPUSCULAR HEMOGLOBIN 36.1 pg (27.0-33.0); MEAN CORPUSCULAR HGB CONC 33.4 g/dl (32.0-36.5); MEAN CORPUSCULAR VOLUME 107.9 fl (80.0-96.0); PLATELET COUNT, AUTOMATED 255 10^3/uL (150-450); WHITE BLOOD COUNT 11.6 10^3/uL (4.0-10.0)
[2021-01-15 13:06] LABS: INR 2.24; PROTHROMBIN TIME 25.3 SECONDS (12.5-14.3)
[2021-01-15 13:07] LABS: PARTIAL THROMBOPLASTIN TIME 56.5 SECONDS (24.2-38.5)
[2021-01-15 13:30] LABS: CREATININE FOR GFR 1.47 MG/DL (0.70-1.30); GLOMERULAR FILTRATION RATE 52.4 (>56)
[2021-01-15 13:31] LABS: ALBUMIN 3.6 GM/DL (3.2-5.2); BILIRUBIN,TOTAL 0.9 MG/DL (0.2-1.0); CALCIUM LEVEL 8.9 MG/DL (8.5-10.1); POTASSIUM SERUM 3.8 MEQ/L (3.5-5.1); TOTAL PROTEIN 7.7 GM/DL (6.4-8.2)
[2021-01-15 13:33] LABS: FOLATE 4.2 NG/ML
== END ==
LOC: M SFHCADAM 11:37
PROVIDERS: ATTEND Physician Assistant
DX: I48.91 Unspecified atrial fibrillation (principal); F10.10 Alcohol abuse, uncomplicated; K76.0 Fatty (change of) liver, not elsewhere classified; M1A.9XX0 Chronic gout, unspecified, without tophus (tophi)

== ENCOUNTER → 2021-01-25 | Outpatient (REF) | payer OTHER ==
[2021-01-25 14:01] LABS: BASO # 0.1 10^3/uL (0.0-0.2); BASO % 0.7 % (0.0-1.0); EOS # 0.1 10^3/uL (0.0-0.5); HEMATOCRIT 36.6 % (42.0-52.0); HEMOGLOBIN 11.7 g/dl (13.5-17.5); LYMPH # 2.1 10^3/uL (1.5-5.0); MEAN CORPUSCULAR HEMOGLOBIN 34.9 pg (27.0-33.0); MEAN CORPUSCULAR VOLUME 109.3 fl (80.0-96.0); MONO # 1.3 10^3/uL (0.0-0.8); MONO % 10.2 % (2.0-8.0); NEUTROPHILS # 8.7 10^3/uL (1.5-8.5); NEUTROPHILS % 70.8 % (36.0-66.0); PLATELET COUNT, AUTOMATED 246 10^3/uL (150-450); RED BLOOD COUNT 3.35 10^6/uL (4.30-6.10); WHITE BLOOD COUNT 12.3 10^3/uL (4.0-10.0)
[2021-01-25 14:37] LABS: BLOOD UREA NITROGEN 12 MG/DL (7-18); CALCIUM LEVEL 9.3 MG/DL (8.5-10.1); CARBON DIOXIDE LEVEL 29 MEQ/L (21-32); CHLORIDE LEVEL 97 MEQ/L (98-107); CREATININE FOR GFR 1.32 MG/DL (0.70-1.30); FERRITIN 87 NG/ML (26-388); GLOMERULAR FILTRATION RATE 59.3 (>56); GLUCOSE, FASTING 137 MG/DL (70-100); IRON (FE) 54 UG/DL (65-175); PERCENT SATURATION 13.3 % (19.7-50.0); POTASSIUM SERUM 3.9 MEQ/L (3.5-5.1); SODIUM LEVEL 136 MEQ/L (136-145); TOTAL IRON BINDING CAPACITY 405 UG/DL (250-450)
[2021-01-25 14:54] LABS: HEPATITIS B SURFACE ANTIGEN NEGATIVE (NEGATIVE)
[2021-01-25 15:22] LABS: HEPATITIS C VIRUS ABY INDEX 0.1 INDEX (<0.8)
[2021-01-25 15:23] LABS: HEPATITIS B CORE ANTIBODY IGM NEGATIVE (NEGATIVE)
[2021-01-25 15:24] LABS: HEPATITIS A ANTIBODY IGM NEGATIVE (NEGATIVE)
== END ==
LOC: M SFHCADAM 11:33
PROVIDERS: ATTEND Physician Assistant
DX: K70.30 Alcoholic cirrhosis of liver without ascites (principal); F10.10 Alcohol abuse, uncomplicated; I48.0 Paroxysmal atrial fibrillation; D50.8 Other iron deficiency anemias

== ENCOUNTER → 2021-03-19 | Outpatient (REF) | payer OTHER ==
[2021-03-19 13:40] LABS: ALBUMIN 3.2 GM/DL (3.2-5.2); ALT/SGPT 33 U/L (12-78); BILIRUBIN,TOTAL 0.7 MG/DL (0.2-1.0); BLOOD UREA NITROGEN 13 MG/DL (7-18); CALCIUM LEVEL 9.1 MG/DL (8.5-10.1); CARBON DIOXIDE LEVEL 28 MEQ/L (21-32); CHLORIDE LEVEL 101 MEQ/L (98-107); CREATININE FOR GFR 1.28 MG/DL (0.70-1.30); GLOMERULAR FILTRATION RATE > 60.0 (>56); GLUCOSE, FASTING 108 MG/DL (70-100); SODIUM LEVEL 139 MEQ/L (136-145); TOTAL PROTEIN 7.6 GM/DL (6.4-8.2)
== END ==
LOC: M SFHCADAM 11:38
PROVIDERS: ATTEND Physician Assistant
DX: K70.30 Alcoholic cirrhosis of liver without ascites (principal); G93.40 Encephalopathy, unspecified

== ENCOUNTER → 2021-03-30 | Outpatient (REF) | payer OTHER ==
[2021-03-30 13:08] LABS: HEMATOCRIT 36.3 % (42.0-52.0); HEMOGLOBIN 11.2 g/dl (13.5-17.5); MEAN CORPUSCULAR HEMOGLOBIN 30.3 pg (27.0-33.0); MEAN CORPUSCULAR HGB CONC 30.9 g/dl (32.0-36.5); MEAN CORPUSCULAR VOLUME 98.1 fl (80.0-96.0); PLATELET COUNT, AUTOMATED 200 10^3/uL (150-450); WHITE BLOOD COUNT 11.2 10^3/uL (4.0-10.0)
[2021-03-30 13:20] LABS: INR 1.54; PROTHROMBIN TIME 18.9 SECONDS (12.7-14.5)
== END ==
LOC: M LABDRWAD 12:43
PROVIDERS: ATTEND Physician Assistant
DX: I48.92 Unspecified atrial flutter (principal)

== ENCOUNTER → 2021-04-28 | Outpatient (CLI) | payer OTHER ==
[2021-04-28 13:44] LABS: ALBUMIN 3.1 GM/DL (3.2-5.2); ALT/SGPT 25 U/L (12-78); BILIRUBIN,DIRECT 0.2 MG/DL (0.0-0.2); BILIRUBIN,TOTAL 0.5 MG/DL (0.2-1.0); IRON (FE) 26 UG/DL (65-175); PERCENT SATURATION 5.9 % (19.7-50.0); TOTAL IRON BINDING CAPACITY 437 UG/DL (250-450); TOTAL PROTEIN 7.4 GM/DL (6.4-8.2)
[2021-04-28 14:06] LABS: HEPATITIS B SURFACE ANTIGEN NEGATIVE (NEGATIVE)
[2021-04-28 14:33] LABS: HEPATITIS B CORE ANTIBODY IGM NEGATIVE (NEGATIVE)
[2021-04-30 16:08] LABS: ANCA-ATYPICAL <1:20 titer (Neg:<1:20); ANTI DOUBLE STRAND-DNA AB 8 IU/mL (0-9); ANTI-MITOCHONDRIAL ANTIBODY <20.0 Units (0.0-20.0); ANTINUCLEAR ANTIBODIES DIRECT Positive (Negative); CERULOPLASMIN 31.5 mg/dL (16.0-31.0); CYTOPLASMIC NEUTROP AB ANCA-C <1:20 titer (Neg:<1:20); LIVER-KIDNEY MICROSOMAL ABY <20.1 Units (0.0-20.0); PERINUCLEAR AB ANCA-P <1:20 titer (Neg:<1:20); SJOGREN'S ANTI SS-A <0.2 AI (0.0-0.9); SJOGREN'S ANTI SS-B <0.2 AI (0.0-0.9); SMITH ANTIBODIES <0.2 AI (0.0-0.9); TISSUE TRANSGLUTAMINASE IgA <2 U/mL (0-3)
== END ==
LOC: M LABDRWAD 10:50
PROVIDERS: ATTEND Internal Medicine Gastroenterology
DX: K70.9 Alcoholic liver disease, unspecified (principal)

== ENCOUNTER → 2021-05-12 | Outpatient (CLI) | payer OTHER ==
--- NOTE | 2021-05-13 16:20 | SLEEPCENT ---
DATE: 05/12/2021 ORDERED BY: ANNA Woods Nocturnal polysomnography was performed for evaluation of sleep physiology in this patient with a history of excessive somnolence and nonrestorative sleep. Six hours and 56 minutes of data were reviewed. There were 315.5 minutes of sleep identified. Sleep latency was normal at 15.5 minutes. REM latency was delayed at 286.5 minutes. Sleep architecture showed some fragmentation and poor progression. There was one REM cycle late in the study. Overall sleep efficiency was 76%. The electrocardiogram showed what appeared to be a sinus rhythm at 75 beats per minute. There were occasional ectopic beats noted. The rate range was 60-90. EEG showed normal waveforms for wake and sleep. There were 435 respiratory events identified of 10 seconds in duration or greater for an apnea-hypopnea index of 82.7. The events were obstructive, not exclusive to sleep stage nor body posture. Arousals from respiratory events occurred 15.6 times per hour. There were very few limb arousals noted and desaturations into the low 80s were seen. IMPRESSION: Very severe obstructive sleep apnea syndrome (G47.33). Apnea-hypopnea index 82.7. RECOMMENDATION: The patient should be encouraged to return to [facility] at the earliest convenience. In the interim, alcohol and sedative avoidance should be practiced and caution exercised during the operation of motor vehicles. cc: SUZANNE CHIANG MD
== END ==
LOC: M SLEEP 20:00
PROVIDERS: ATTEND Physician Assistant
DX: R40.0 Somnolence (principal)

== ENCOUNTER → 2021-06-05 | Outpatient (CLI) | payer OTHER ==
[~2021-06-05] MED LIST changes: +AMIO200T3 PO; +SPIR-10 PO; +TORS100T PO; +XARE10TA PO
== END ==
LOC: M LABSMTC 11:56
PROVIDERS: ATTEND Anesthesiology
DX: Z01.812 Encounter for preprocedural laboratory examination (principal); Z20.822 Contact with and (suspected) exposure to COVID-19

== ENCOUNTER 2021-06-10 10:32 | Day surgery (SDC) | payer OTHER ==
[~2021-06-10] VITALS: Ht 177.8 cm; Wt 108.9 kg
[~2021-06-10 10:32] MED LIST changes: +LIDOCAINE 2% 100MG/5ML SDV (FOR ANES.) As Ordered ONE; +NS 1,000 ML IV ONE; +propofoL 200 MG/20 ML VIAL As Ordered ONE
--- OUTSIDE RECORDS SUMMARY | 2021-06-10 10:39 | CCD | Continuity of Care Document ---
Author Author John BETTENCOURT MD Organization Unknown Address [address] [place] [id number] Phone [phone] Care Team Providers Care Tufter Name Role Phone Mayte Ray P.A.-C. AUTM [phone] Justin Ott M.D. AUTM [phone] AUTM Unavailable Problems Description No Information Available Social History Type Date Description Comments Sex Unknown ETOH Use Approx 10-12 a day wine and shot s liq Tobacco Use Start: Unknown End: Unknown Patient is a former smoker Tobacco Use Start: 07/10/85 End: 07/10/05 Patient is a forme r smoker 20 cigarettes Smoking Status Reviewed: 04/20/21 Patient is a former smoker 20 cigarettes Allergies and adverse reactions Active Allergies Criticality Reaction | Severity Comments Date Allopurinol Unable to assess criticality 04/20/2021 Lisinopril Unable to assess criticality 04/20/2021 Inactive Allergies NKDA Unable to assess criticality 04/20/2021 Medications Active Medications SIG Qnty Indications Ordering Provide r Date Metoprolol Tartrate 50mg Tablets bid Unknown Xarelto 20mg Tablets Unknown Amiodarone HCL 200mg Tablets Unknown Spironolactone 25mg Tablets Unknown Torsemide 20mg Tablets 50 mg Unknown Lactulose 10GM/15ML Solution 15 ml Unknown Acetaminophen 325mg Tablets Unknown Vitamin B Complex Tablets Unknown Immunizations Description No Information Available Vital Signs Date Vital Result Comment 04/22/2021 1:26pm BP Systolic 132 mmHg BP Diastolic 69 mmHg Height 69.5 inches 5'9.50" Weight 248.00 lb BMI (Body Mass Index) 36.1 kg/m2 Lester Body Weight 160 lb Weight 112.493 kg BSA (Body Surface Area) 2.28 m2 04/20/2021 10:19am BP Systolic 112 mmHg BP Diastolic 62 mmHg Heart Rate 63 /min O2 % BldC Oximetry 98 % Height 69.5 inches 5'9.50" Weight 251.00 lb BMI (Body Mass Index) 36.5 kg/m2 [place] Body Weight 160 lb Neck Circumference in inches 20.5 Raynham Score 12 Weight 113.854 kg BSA (Body Surface Area) 2.29 m2 Results Description No Information Available Procedures Date Code Description Status 04/22/2021 50510 Office/Outpatient New Moderate M DM 45-59 Minutes Completed Medical Devices Description No Information Available Encounters Type Date Location Provider Dx Diagnosis Office Visit 04/22/2021 1:15p [facility] ct[facility] Pablo Bettencourt MD K70.9 Alcoholic liver disease, uns pecified D64.9 Anemia, unspecified Assessments Date Code Description Provider 04/22/2021 K70.9 Alcoholic liver disease, unspeci fied Pablo Bettencourt MD 04/22/2021 D64.9 Anemia, unspecified Pablo Bettencourt MD 04/20/2021 R40.0 Somnolence Jag Wei, PSydney A. 04/20/2021 R06.83 Snoring Jag Wei, PSydney Higgins. 04/20/2021 G47.30 Sleep apnea, unspecified Jag Wei, PJulio Plan of Treatment Future Appointment(s):* 06/11/2021 11:30 am - Jag Wei, P.ASydney at [facility] Pulmonary/Thoracic * 05/12/2021 7:45 pm - [facility] Sleep Lab at [facility] Pulmonary/Thoracic 04/22/2021 - Pablo Bettencourt MD* K70.9 Alcoholic liver disease, unspecified * D64.9 Anemia, unspecified * * New Labs:* Antinuclear Antibodies, Ordered: 04/22/21 * Anti-Mitochondrial Antibody, Ordered: 04/22/21 * Anti-Neutrophil Cytoplasmic AB, Ordered: 04/22/21 * Liver-Kidney Microsomal Gogo, Ordered: 04/22/21 * Total Iron Binding Capacit, Ordered: 04/22/21 * Ceruloplasmin, Ordered: 04/22/21 * Liver Profile, Ordered: 04/22/21 * Tissue Transglutaminase Iga, Ordered: 04/22/21 * Immunoglobulin A, Ordered: 04/22/21 * Hepatitis Profile, Ordered: 04/22/21 * New Orders:* EGD, Ordered: 04/22/21 * EGD w/ poss. Variceal Banding, Ordered: 04/22/21 * Recommendations:* stop alcohol. counselling done today EGD for anemia, marginal iron studies Colonoscopy suggested. (he declines stating he had colo 2015 and is not due.--discussed. he declines) Eval LFT for other than alcohol Functional Status Description No Information Available Mental Status Mental Condition Comment Date Status Cognitive ability not impaired A ctive Referrals Refer to Dr Reason for Referral Status Appt Date Jag Wei, R.P.A.-C. ?GALO, ABN NOC OX Scheduled [facility]-P[facility] [address] [place] [address] [phone] Pablo Bettencourt M.D. ANEMIA/FATTY LIVER Scheduled [address] [facility], Gastroenterology [address] [place], [address] [place] [address] [phone]
--- OUTSIDE RECORDS SUMMARY | 2021-06-10 10:39 | CCD ---
Author Author [facility] Organization [facility] Address Unknown Phone Unavailable Care Team Providers Care Privacy Analyst Name Role Phone Mayte Ray Unavailable PROBLEMS Type Condition ICD9-CM Code [id number] Code Onset Dates Condition S tatus W/U Status Risk SNOMED Code Notes Problem Hypertension 401.9 Active confirmed 3829728 3 Problem Anemia 285.9 Active confirmed 819896608 Problem Gout 274.9 Active confirmed 30590085 Problem Gout, unspecified M10.9 Active confirmed 90 667194 Problem Essential (primary) hypertension I10 Active conf irmed 10905781 Problem Tophi M1A.9XX1 Active confirmed 142877822 Problem Hyperlipidemia, unspecified E78.5 Active confirmed 99762659 Problem Paroxysmal atrial fibrillation I48.0 Active confir med 941462753 Problem Obesity (BMI 30-39.9) E66.9 Active confirmed 208708984 Problem Hyperlipidemia 272.4 Active confirmed 42675 004 Problem Primary insomnia F51.01 Active confirmed 397 2004 Problem Typical atrial flutter I48.3 Active confirmed 966446706 Problem Neuropathy G62.9 Active confirmed 777294947 Problem ETOH abuse F10.10 Active confirmed 74267870 Problem Current moderate episode of major depressive disorder without prior episode F32.1 Active confirmed 59427715 Problem GALO (obstructive sleep apnea) G47.33 Active confirm ed 04184335 Problem Prostate cancer screening Z12.5 Active confirmed 393866711 Problem Folic acid deficiency E53.8 Active confirmed 918550103 Problem Acute congestive heart failure, unspecified heart fail ure type I50.9 Active confirmed 77750080 Problem Rapid atrial fibrillation I48.91 Active confirmed 475679848 Problem Fatty liver K76.0 Active confirmed 60618036 7 Problem Encephalopathy G93.40 Active confirmed 60017 009 Problem Panic attacks F41.0 Active confirmed 237976 000 Problem Encounter for immunization Z23 Active confirmed 100241247 Problem Erectile dysfunction, unspecified erectile dysfunction typ e N52.9 Active confirmed 279352831 Problem Atrial flutter, unspecified type I48.92 Active conf irmed 7386984 Problem Benign prostatic hyperplasia without lower urina ry tract symptoms N40.0 Active confirmed 990874776 Problem Chronic gout without tophus, unspecified cause, unspecified site M1A.9XX0 Active confirmed 373114059 Problem Alcoholic cirrhosis of liver without ascites K70.3 0 Active confirmed 310601244 Problem Other iron deficiency anemia D50.8 Active confirme d 76047531 ALLERGIES Allergen (clinical drug ingredient) Drug/Non Drug Allergy do cumented on EMR Reaction Allergy Type Onset Date Status Allopurinol Hives Drug Allergy Active lisinopril Lisinopril([facility] Code:[address]-69) gynecomastea Drug Aller gy Active ENCOUNTERS from 1960 to 2021-05-31 Encounter Location Date Provider Diagnosis [id number] [place] [address] May, 2021 Mayte Wetterhahn Paroxysmal atrial fibrillation I48.0 ; A lcoholic cirrhosis of liver without ascites K70.30 ; Other iron deficiency anemia D50.8 ; GALO (obstructive sleep apnea) G47.33 ; Encephalopathy G93.40 ; Epistaxis R04.0 and Encounter for immunization Z23 IMMUNIZATIONS Vaccine Route Administration Date Status Influenza 18 yrs & older Flublok IM Intramuscular May 27, 2021 Administered SOCIAL HISTORY Tobacco Use: Social History Observation Description Date Details (start date - stop date) Former Smoker Sex Assigned At : Social History Observation Description Sex Assigned At Unknown Audit Question Answer Notes Total Score: 4 Interpretation: Alcohol Education Language: Question Answer Notes Languages spoken: Kyrgyz Islam: Question Answer Notes Islam No moravian beliefs that would impact health care. Domestic Violence: Question Answer Notes Status: Sexual Hx: Question Answer Notes Had sex in the last 12 months (vaginal, oral, or anal)? Yes Have you ever had an STD? Yes with Women only Use protection? Yes Herpes? Yes Drug and Alcohol Question Answer Notes Total Score: 0 Interpretation: No problems reported Alcohol Screening: Question Answer Notes Did you have a drink containing alcohol in the past year? Ye s Points 10 Interpretation Positive How often did you have six or more drinks on one occas ion in the past year? Daily or almost daily (4 points) How many drinks did you have on a typica l day when you were drinking in the past year? 5 or 6 (2 points) How often did you have a drink containing alcohol in t he past year? Four or more times a week (4 points) BMI Care Goal Follow-Up Question Answer Notes Above Normal BMI Follow-Up Dietary management educatio n, guidance, and counseling Tobacco Use: Question Answer Notes Are you a: former smoker former smoker REASON FOR REFERRAL No Information VITAL SIGNS Weight 251 lbs May, Height 5'10 1/2" in May, BMI 35.50 kg/m2 May, Heart Rate 59 /min May, Respiratory Rate 18 /min May, Temperature 95.2 degrees Fahrenheit May, Oximetry 98 May, Blood pressure systolic 148 mm Hg May, Blood pressure diastolic 82 mm Hg May, MEDICATIONS Medication SIG (Take, Route, Frequency, Duration) Notes Start Da te End Date Status Torsemide 100 MG 1/2 tablet Orally Once a day Active Vitamin D3 25 MCG (1000 UT) 1 tablet Orally Once a day for 30 day(s) Not-Taking Lactulose 10 GM/15ML 15 ml Orally twice a day Feb, Active Spironolactone 25 MG 1/2 tablet Orally Once a day Active Amiodarone HCl 200 MG 1 tablet Orally Daily Active Xarelto 20 MG 1 tablet with food Orally Once a day Active Aspirin Adult Low Dose 81 MG 1 tablet Orally Once a day for 30 day(s) Not-Taking Metoprolol Tartrate 100 MG 1/4 tablet with food Orally Twice a day Active PROCEDURES from 1960 to 2021-05-31 Procedure Date Ordered Result Body Site Imm: Flublok Quadrivalent 18 years & older 0.5mL IM Influenza 20 30-05-18 N/A RESULTS No Results REASON FOR VISIT 3 month MEDICAL (GENERAL) HISTORY Type Description Date Medical History Hypertension Medical History Hyperlipidemia Medical History Gout - mostly in feet Medical History Osteoarthritis Medical History rt carpal tunnel Medical History Atrial Flutter/Atrial Fibril lation - recurrence after cardioversion - s/p ablation 04/16/18 Medical History Depression Medical History ETOH Abuse Medical History GALO per NPSG 04/2021 - following with p ulmonary Medical History Peroneal Nerve Damage per NCS 2018 - fol lowed by Neurology Medical History ETOH induced polyneuropathy Medical History IFG/Prediabetes Medical History Folic Acid Deficiency Medical History Alcoholic Cirrhosis without ascites - Established with GI 04/2021 Surgical History carpal tunnel release-left - 06/10/14 (Dr Bianchi) Surgical History fracture repair -left tib/fib Surgical History ankle surgery- right Surgical History Colonoscopy - non-thrombosed hemorrhoids, Diverticulosis (Lynette) 11/2014 Surgical History carpal tunnel release-right 08/27/15 Surgical History elbow surgery-right 08/27/15 Hospitalization History surgery Hospitalization History atrial fibrillation 11/2017 Goals Section No Information Health Concerns No Information MEDICAL EQUIPMENT No Information MENTAL STATUS No Information FUNCTIONAL STATUS No Information ASSESSMENTS Encounter Date Diagnosis Assessment Notes Treatment Notes Treatm ent Clinical Notes May, Paroxysmal atrial fibrillation (ICD-10 - I48.0) Per Cardiology May, Alcoholic cirrhosis of liver without ascites (IC D-10 - K70.30) Per GI May, Other iron deficiency anemia (ICD-10 - D50.8) May, GALO (obstructive sleep apnea) (ICD-10 - G47.33) Per Pulmonary - will be starting GALO May, Encephalopathy (ICD-10 - G93.40) Encouraged him to take his lactulose more regularly May, Epistaxis (ICD-10 - R04.0) He is planning to apply vasaline into nasal passage to see if this helps. Ifnot thenhe will let me know so I can refer to ENT May, Encounter for immunization (ICD-10 - Z23) PLAN OF TREATMENT Medication Medication Name Sig Start Date Stop Date Torsemide 100 MG 1/2 tablet Orally Once a day Xarelto 20 MG 1 tablet with food Orally Once a day Lactulose 10 GM/15ML 15 ml Orally twice a day Feb, Amiodarone HCl 200 MG 1 tablet Orally Daily Spironolactone 25 MG 1/2 tablet Orally Once a day Metoprolol Tartrate 100 MG 1/4 tablet with food Orally Twice a d ay Treatment Notes Assessment Notes Clinical Notes Paroxysmal atrial fibrillation Per Cardi ology Alcoholic cirrhosis of liver without ascites Per GI GALO (obstructive sleep apnea) Per Pulrhonda jean - will be starting GALO Encephalopathy Encouraged him to ta ke his lactulose more regularly Epistaxis He is planning to ap ply vasaline into nasal passage to see if this helps. Ifnot thenhe will let me know so I can refer to ENT Future Test Test Name Order Date CBC - Complete Blood Count 20210811 Comprehensive Metabolic Profile (CMP) 20210811 FERRITIN 20210811 HEMOGLOBIN A1c 20210811 TOTAL IRON BINDING CAPACIT 20210811 VITB12 & FOL 20210811 AMMONIA 20210811 Next Appt Details 3 Months, labs prior Reason: Provider Name:Mayte Ray, 2021-08 02:45:00 PM, [address] , [place], [address], Provider Name:Alva Marie Lakeshia, 2021-11-08 3 10:30:00 AM, [address] [facility], , [place], [address], Insurance Providers Payer Name Payer Address Payer Phone Insured Name Patient Relati onship to Insured Coverage Start Date Coverage End Date [facility] [address] [facility] [phone] [id number] MELVIN AGUAYO [id number]
--- OUTSIDE RECORDS SUMMARY | 2021-06-10 10:39 | CCD | Continuity of Care Document ---
Author Author John BETTENCOURT MD Organization Unknown Address [address] [place] [address] Phone [phone] Care Team Providers Care Rewriter Name Role Phone Mayte Ray P.A.-C. AUTM Justin Ott M.D. AUTM [phone] AUTM Unavailable Problems Description No Information Available [...] lb BMI (Body Mass Index) 36.1 kg/m2 [place] Body Weight 160 lb Weight 112.493 kg BSA (Body Surface Area) 2.28 m2 04/20/2021 10:19am BP Systolic 112 mmHg BP Diastolic 62 mmHg Heart Rate 63 /min O2 % BldC Oximetry 98 % Height 69.5 inches 5'9.50" Weight 251.00 lb BMI (Body Mass Index) 36.5 kg/m2 [place] Body Weight 160 lb Neck Circumference in inches 20.5 [place] Score 12 Weight 113.854 kg BSA (Body Surface Area) 2.29 m2 Results Description No Information Available Procedures Date Code Description Status 04/22/2021 93272 Office/Outpatient New Moderate M DM 45-59 Minutes Completed Medical Devices Description No Information Available Encounters Type Date Location Provider Dx Diagnosis Office Visit 04/22/2021 1:15p [facility] Gastroenterology Pra ctice Pablo Bettencourt MD K70.9 [...] 11:30 am - Jag Wei, P.ASydney at [facility] Pulmonary/Thoracic * 05/12/2021 7:45 pm - [facility] Sleep Lab at [facility] Pulmonary/Thoracic 04/22/2021 - Pablo Bettencourt MD* K70.9 [...] Wei, R.P.A.-C. ?GALO, ABN NOC OX Scheduled [facility] [address] [place] [address] [phone] Pablo Bettencourt M.D. ANEMIA/FATTY LIVER Scheduled [facility], Gastroenterology [address] [facility], [address] [place] [address] [phone]
--- OUTSIDE RECORDS SUMMARY | 2021-06-10 10:39 | CCD ---
Author Author [facility] Organization [facility] Address Unknown Phone Unavailable Care Team Providers Care Microsoft [employer] Ax Consultant Name Role Phone Mayte Ray Unavailable PROBLEMS Type Condition ICD9-CM Code IJA51-KM Code Onset Dates Condition S tatus W/U Status Risk SNOMED Code Notes Problem Hyperlipidemia 272.4 Active confirmed 81306 004 Problem Gout 274.9 Active confirmed 95629779 Problem Hypertension 401.9 Active confirmed 8612401 3 Problem Essential (primary) hypertension I10 Active conf irmed 10191920 Problem Anemia 285.9 Active confirmed 217793191 Problem Hyperlipidemia, unspecified E78.5 Active confirmed 01531052 Problem Gout, unspecified M10.9 Active confirmed 90 831462 Problem Obesity (BMI 30-39.9) E66.9 Active confirmed 295348703 Problem Prostate cancer screening Z12.5 Active confirmed 964289449 Problem Typical atrial flutter I48.3 Active confirmed 567675362 Problem Atrial flutter, unspecified type I48.92 Active conf irmed 6450339 Problem ETOH abuse F10.10 Active confirmed 66664842 Problem Primary insomnia F51.01 Active confirmed 397 2004 Problem GALO (obstructive sleep apnea) G47.33 Active confirm ed 26344879 Problem Neuropathy G62.9 Active confirmed 825910240 Problem Folic acid deficiency E53.8 Active confirmed 084153909 Problem Current moderate episode of major depressive disorder without prior episode F32.1 Active confirmed 65301125 Problem Paroxysmal atrial fibrillation I48.0 Active confir med 908789384 Problem Fatty liver K76.0 Active confirmed 98137808 7 Problem Acute congestive heart failure, unspecified heart fail ure type I50.9 Active confirmed 38133665 Problem Alcoholic cirrhosis of liver without ascites K70.3 0 Active confirmed 357798398 Problem Erectile dysfunction, unspecified erectile dysfunction typ e N52.9 Active confirmed 796455383 Problem Encephalopathy G93.40 Active confirmed 21804 009 Problem Tophi M1A.9XX1 Active confirmed 752319899 Problem Panic attacks F41.0 Active confirmed 168156 000 Problem Rapid atrial fibrillation I48.91 Active confirmed 265406867 Problem Benign prostatic hyperplasia without lower urina ry tract symptoms N40.0 Active confirmed 109440242 Problem Chronic gout without tophus, unspecified cause, unspecified site M1A.9XX0 Active confirmed 003766435 Problem Other iron deficiency anemia D50.8 Active confirme d 68345762 ALLERGIES Allergen (clinical drug ingredient) Drug/Non Drug Allergy do cumented on EMR Reaction Allergy Type Onset Date Status Allopurinol Hives Drug Allergy Active lisinopril Lisinopril([facility] Code:[address]-65) gynecomastea Drug Aller gy Active ENCOUNTERS from 1960 to 2021-04-14 Encounter Location Date Provider Diagnosis [facility] [address] [place] [address] Apr, Mayte Wetterhahn IMMUNIZATIONS No Information SOCIAL HISTORY Tobacco Use: Social History Observation Description Date Details (start date - stop date) Former Smoker Sex Assigned At : Social History Observation Description Sex Assigned At Unknown Audit Question Answer Notes Total Score: 4 Interpretation: Alcohol Education Language: Question Answer Notes Languages spoken: Eritrean Roman Catholic: Question Answer Notes Roman Catholic No adventist beliefs that would impact health care. Domestic [...] REASON FOR REFERRAL No Information VITAL SIGNS No information MEDICATIONS Medication SIG (Take, Route, Frequency, Duration) Notes Start Da te End Date Status Aspirin Adult Low Dose 81 MG 1 tablet Orally Once a day for 30 day(s) Active Metoprolol Tartrate 100 MG 1 tablet with food Orally Twice a day Active Spironolactone 25 MG 1 tablet Orally Once a day Active Lactulose 10 GM/15ML 15 ml Orally twice a day for 90 days Feb, Active Torsemide 100 MG 1/2 tablet Orally Once a day Not-Taking Vitamin D3 25 MCG (1000 UT) 1 tablet Orally Once a day for 30 day(s) Active Xarelto 20 MG 1 tablet with food Orally Once a day Active Amiodarone HCl 200 MG 1 tablet Orally Daily Active PROCEDURES No Information RESULTS No Results REASON FOR VISIT Ammonia MEDICAL (GENERAL) HISTORY Type Description Date Medical History Hypertension Medical History Hyperlipidemia Medical History Gout - mostly in feet Medical History Osteoarthritis Medical History rt carpal tunnel Medical History Atrial Flutter/Atrial Fibril lation - recurrence after cardioversion - s/p ablation 04/16/18 Medical History Depression Medical History ETOH Abuse Medical History Probable GALO - 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 while under anesthesia - Referred for NPSG - He did not go and refuses new referral Medical History Peroneal Nerve Damage per NCS 2018 - fol lowed by Neurology Medical History ETOH induced polyneuropathy Medical History IFG/Prediabetes Medical History Folic Acid Deficiency Medical History Alcoholic Cirrhosis without ascites Surgical History carpal tunnel release-left - 06/10/14 [...] No Information FUNCTIONAL STATUS No Information ASSESSMENTS No Information PLAN OF TREATMENT Medication Medication Name Sig Start Date Stop Date Lactulose 10 GM/15ML 15 ml Orally twice a day for 90 days Feb Next Appt Details Provider Name:Mayte Wetterhahn, 2021-05 10:00:00 AM, [address], , [place], [address], Provider Name:Alva Asher, 2021-11-08 3 10:30:00 AM, [address], , [place], [address], Insurance Providers Payer Name Payer Address Payer Phone Insured Name Patient Relati onship to Insured Coverage Start Date Coverage End Date [facility] [address] [facility] [phone] [id number] MELVIN AGUAYO [id number]
--- OUTSIDE RECORDS SUMMARY | 2021-06-10 10:39 | CCD ---
Continuity of Care Document (CCD) Created on: 04/22/2021 John Gibson External Reference #: [id number] : [id number] Sex: Male Author Author John BETTENCOURT MD Organization Unknown Address [address] [place] [address] Phone [phone] Care Team Providers Care Petrophysicist Name Role Phone Mayte Ray P.A.-C. AUTM Justin Ott M.D. AUTM [phone] AUTM Unavailable Problems Description No Information Available [...] lb BMI (Body Mass Index) 36.1 kg/m2 [place] Body Weight 160 lb Weight 112.493 kg BSA (Body Surface Area) 2.28 m2 04/20/2021 10:19am BP Systolic 112 mmHg BP Diastolic 62 mmHg Heart Rate 63 /min O2 % BldC Oximetry 98 % Height 69.5 inches 5'9.50" Weight 251.00 lb BMI (Body Mass Index) 36.5 kg/m2 [place] Body Weight 160 lb Neck Circumference in inches 20.5 [place] Score 12 Weight 113.854 kg BSA (Body Surface Area) 2.29 m2 Results Description No Information Available Procedures Date Code Description Status 04/22/2021 77666 Office/Outpatient New Moderate M DM 45-59 Minutes Completed Medical Devices Description No Information Available Encounters Type Date Location Provider Dx Diagnosis Office Visit 04/22/2021 1:15p [facility] Gastroenterology Pra ctice Pablo Bettencourt MD [...] 11:30 am - Jag Wei, P.ASydney at [facility] Pulmonary/Thoracic * 05/12/2021 7:45 pm - [facility] Sleep Lab at [facility] Pulmonary/Thoracic 04/22/2021 - Pablo Bettencourt MD* [...] Wei, R.P.A.-C. ?GALO, ABN NOC OX Scheduled [facility]-Pulmonary [address] [place] [address] [phone] Pablo Bettencourt M.D. ANEMIA/FATTY LIVER Scheduled [facility], Gastroenterology [address] [facility], [address] [place] [address] [phone]
--- OUTSIDE RECORDS SUMMARY | 2021-06-10 10:39 | CCD | Continuity of Care Document ---
Author Author John WEI P.A. Organization Unknown Address [address] [place] [address] Phone [phone] Care Team Providers Care Planning Specialist Name Role Phone Mayte Ray P.A.-C. AUTM Justin Ott M.D. AUTM [phone] AUTM Unavailable Problems Description No Information Available [...] lb BMI (Body Mass Index) 36.1 kg/m2 [place] Body Weight 160 lb Weight 112.493 kg BSA (Body Surface Area) 2.28 m2 04/20/2021 10:19am BP Systolic 112 mmHg BP Diastolic 62 mmHg Heart Rate 63 /min O2 % BldC Oximetry 98 % Height 69.5 inches 5'9.50" Weight 251.00 lb BMI (Body Mass Index) 36.5 kg/m2 [place] Body Weight 160 lb Neck Circumference in inches 20.5 [place] Score 12 Weight 113.854 kg BSA (Body Surface Area) 2.29 m2 Results Description No Information Available Procedures Date Code Description Status 04/22/2021 05877 Office/Outpatient New Moderate M DM 45-59 Minutes Completed 04/20/2021 80953 Office/Outpatient New Low MDM 30 -44 Minutes Completed Medical Devices Description No Information Available Encounters Type Date Location Provider Dx Diagnosis Office Visit 04/22/2021 1:15p [facility] Gastroenterology Pra ctice Pablo Bettencourt MD K70.9 Alcoholic liver disease, uns pecified D64.9 Anemia, unspecified Office Visit 04/20/2021 10:30a [facility] Pulmonary/Thoracic Jag Wei, P.A. R40.0 Somnolence R06.83 Snoring G47.30 Sleep apnea, unspecified Assessments Date Code Description Provider 04/22/2021 K70.9 Alcoholic liver disease, unspeci fied Pablo Bettencourt MD 04/22/2021 D64.9 Anemia, unspecified Pablo Bettencourt MD 04/20/2021 R40.0 Somnolence Jag Wei, P. A. 04/20/2021 R06.83 Snoring Jag Wei, P. A. 04/20/2021 G47.30 Sleep apnea, unspecified Jag Wei, P.A. Plan of Treatment Future Appointment(s):* 06/11/2021 11:30 am - Jag Wei, P.A. at [facility] Pulmonary/[facility] * 05/12/2021 7:45 pm - [facility] Sleep Lab at [facility] 04/22/2021 - Pablo Bettencourt MD* K70.9 Alcoholic [...] not impaired A ctive Referrals Refer to Reason for Referral Status Appt Date Jag Wei, R.P.A.-C. ?GALO, ABN NOC OX Scheduled [facility]-Pulmonary [address] [place], [place] [address] [phone] Pablo Bettencourt M.D. ANEMIA/FATTY LIVER Scheduled [facility] [facility], Gastroenterology [address] [facility], [address] [place] [address] [phone]
--- OUTSIDE RECORDS SUMMARY | 2021-06-10 10:40 | CCD ---
Author Author [facility] Organization [facility] Address Unknown Phone Unavailable Care Team Providers Care Master Pilot Name Role Phone YESICA, VAMSHI SLOAN Unavailable Unavailable YESICA, VAMSHI SLOAN Unavailable Unavailable REINFRANCHESCA, VAMSHI SLOAN Unavailable Unavailable REINFRANCHESCA, VAMSHI SLOAN Unavailable Unavailable REINFRANCHESCA, VAMSHI SLOAN Unavailable Unavailable REINFRANCHESCA, VAMSHI SLOAN Unavailable Unavailable REINFRANCHESCA, VAMSHI SLOAN Unavailable Unavailable REINDL, VAMSHI SLOAN Unavailable Unavailable REINDL, VAMSHI SLOAN Unavailable Unavailable REINDL, VAMSHI SLOAN Unavailable Unavailable REINDL, VAMSHI SLOAN Unavailable Unavailable REINDL, VAMSHI SLOAN Unavailable Unavailable REINDL, VAMSHI SLOAN Unavailable Unavailable REINDL, VAMSHI SLOAN Unavailable Unavailable REINDL, VAMSHI SLOAN Unavailable Unavailable REINDL, VAMSHI SLOAN Unavailable Unavailable REINFRANCHESCA, VAMSHI SLOAN Unavailable Unavailable REINDL, VAMSHI SLOAN Unavailable Unavailable REINFRANCHESCA, VAMSHI SLOAN Unavailable Unavailable REINDL, VAMSHI SLOAN Unavailable Unavailable REINDL, VAMSHI SLOAN Unavailable Unavailable REINFRANCHESCA, VAMSHI SLOAN Unavailable Unavailable REINFRANCHESCA, VAMSHI SLOAN Unavailable Unavailable REINFRANCHESCA, VAMSHI SLOAN Unavailable Unavailable REINFRANCHESCA, VAMSHI SLOAN Unavailable Unavailable REINDL, VAMSHI SLOAN Unavailable Unavailable REINDL, VAMSHI SLOAN Unavailable Unavailable REINDL, VAMSHI SLOAN Unavailable Unavailable REINDL, VAMSHI SLOAN Unavailable Unavailable REINDL, VAMSHI SLOAN Unavailable Unavailable REINDL, VAMSHI SLOAN Unavailable Unavailable REINDL, VAMSHI SLOAN Unavailable Unavailable REINDL, VAMSHI SLOAN Unavailable Unavailable REINFRANCHESCA, VAMSHI SLOAN Unavailable Unavailable REINFRANCHESCA, VAMSHI SLOAN Unavailable Unavailable REINFRANCHESCA, VAMSHI SLOAN Unavailable Unavailable REINDL, VAMSHI SLOAN Unavailable Unavailable REINFRANCHESCA, VAMSHI SLOAN Unavailable Unavailable YESICA, VAMSHI SLOAN Unavailable Unavailable YESICA, VAMSHI SLOAN Unavailable Unavailable YESICA, VAMSHI SLOAN Unavailable Unavailable YESICA, VAMSHI SLOAN Unavailable Unavailable Ash, V MEHREEN PA-C Unavailable Unavailable Keo, V MEHREEN PA-C Unavailable Unavailable Ash, V MEHREEN PA-C Unavailable Unavailable Keo, V MEHREEN PA-C Unavailable Unavailable Keo, V MEHREEN PA-C Unavailable Unavailable Ash, V MEHREEN PA-C Unavailable Unavailable Keo, V MEHREEN PA-C Unavailable Unavailable Keo, V MEHREEN PA-C Unavailable Unavailable Ash, V MEHREEN PA-C Unavailable Unavailable Ash, V MEHREEN PA-C Unavailable Unavailable Keo, V MEHREEN PA-C Unavailable Unavailable Keo, V MEHREEN PA-C Unavailable Unavailable Ash, V MEHREEN PA-C Unavailable Unavailable Ash, V MEHREEN PA-C Unavailable Unavailable ROMAN, M JACK PA Unavailable Unavailable ROMAN, M JACK PA Unavailable Unavailable ROMAN, M JACK PA Unavailable Unavailable ROMAN, M JACK PA Unavailable Unavailable ROMAN, M JACK PA Unavailable Unavailable ROMAN, M JACK PA Unavailable Unavailable ROMAN, M JACK PA Unavailable Unavailable ROMAN, M JACK PA Unavailable Unavailable ROMAN, M JACK PA Unavailable Unavailable ROMAN, M JACK PA Unavailable Unavailable ROMAN, M JACK PA Unavailable Unavailable ROMAN, M JACK PA Unavailable Unavailable ROMAN, M JACK PA Unavailable Unavailable ROMAN, M JACK PA Unavailable Unavailable ROMAN, M JACK PA Unavailable Unavailable ROMAN, M JACK PA Unavailable Unavailable ROMAN, M JACK PA Unavailable Unavailable ROMAN, M JACK PA Unavailable Unavailable ROMAN, M JACK PA Unavailable Unavailable ROMAN, M JACK PA Unavailable Unavailable ROMAN, M JACK PA Unavailable Unavailable ROMAN, M JACK PA Unavailable Unavailable ROMAN, M JACK PA Unavailable Unavailable ROMAN, M JACK PA Unavailable Unavailable ROMAN, M JACK PA Unavailable Unavailable ROMAN, M JACK PA Unavailable Unavailable ROMAN, M JACK PA Unavailable Unavailable ROMAN, M JACK PA Unavailable Unavailable ROMAN, M JACK PA Unavailable Unavailable ROMAN, M JACK PA Unavailable Unavailable ROMAN, M JACK PA Unavailable Unavailable ROMAN, M JACK PA Unavailable Unavailable ROMAN, M JACK PA Unavailable Unavailable ROMAN, M JACK PA Unavailable Unavailable ROMAN, M JACK PA Unavailable Unavailable Justin Ott MD Unavailable Unavailable Justin Ott MD Unavailable Unavailable Justin Ott MD Unavailable Unavailable Justin Ott MD Unavailable Unavailable Justin Ott MD Unavailable Unavailable Justin Ott MD Unavailable Unavailable Justin Ott MD Unavailable Unavailable Justin Ott MD Unavailable Unavailable Justin Ott MD Unavailable Unavailable Justin Ott MD Unavailable Unavailable Justin Ott MD Unavailable Unavailable Justin Ott MD Unavailable Unavailable Justin Ott MD Unavailable Unavailable Justin Ott MD Unavailable Unavailable Justin Ott MD Unavailable Unavailable Justin Ott MD Unavailable Unavailable Justin Ott MD Unavailable Unavailable Justin Ott MD Unavailable Unavailable Justin Ott MD Unavailable Unavailable Justin Ott MD Unavailable Unavailable Justin Ott MD Unavailable Unavailable Justin Ott MD Unavailable Unavailable Justin Ott MD Unavailable Unavailable Justin Ott MD Unavailable Unavailable Justin Ott MD Unavailable Unavailable Justin Ott MD Unavailable Unavailable Justin Ott MD Unavailable Unavailable Justin Ott MD Unavailable Unavailable Justin Ott MD Unavailable Unavailable Justin Ott MD Unavailable Unavailable Justin Ott MD Unavailable Unavailable Justin Ott MD Unavailable Unavailable Justin Ott MD Unavailable Unavailable Justin Ott MD Unavailable Unavailable Justin Ott MD Unavailable Unavailable Justin Ott MD Unavailable Unavailable Justin Ott MD Unavailable Unavailable Justin Ott MD Unavailable Unavailable Justin Ott MD Unavailable Unavailable Justin Ott MD Unavailable Unavailable Justin Ott MD Unavailable Unavailable Justin Ott MD Unavailable Unavailable Justin Ott MD Unavailable Unavailable Justin Ott MD Unavailable Unavailable Justin Ott MD Unavailable Unavailable Justin Ott MD Unavailable Unavailable Justin Ott MD Unavailable Unavailable Justin Ott MD Unavailable Unavailable Justin Ott MD Unavailable Unavailable Justin Ott MD Unavailable Unavailable Justin Ott MD Unavailable Unavailable Justin Ott MD Unavailable Unavailable Justin Ott MD Unavailable Unavailable Justin Ott MD Unavailable Unavailable Justin Ott MD Unavailable Unavailable Justin Ott MD Unavailable Unavailable Slejose cruz, Vojtech MD Unavailable Unavailable Justin Ott MD Unavailable Unavailable Justin Ott MD Unavailable Unavailable Re-disclosure Warning The records that you are about to access may contain information from federally-assisted alcohol or drug abuse programs. If such information is present, then the following federally mandated warning applies: This information has been disclosed to you from records protected by federal confidentiality rules (42 CFR part 2). The federal rules prohibit you from making any further disclosure of this information unless further disclosure is expressly permitted by the written consent of the person to whom it pertains or as otherwise permitted by 42 CFR part 2. A general authorization for the release of medical or other information is NOT sufficient for this purpose. The Federal rules restrict any use of the information to criminally investigate or prosecute any alcohol or drug abuse patient.The records that you are about to access may contain highly sensitive health information, the redisclosure of which is protected by Article 27-F of the [facility] Public Health law. If you continue you may have access to information: Regarding HIV / AIDS; Provided by facilities licensed or operated by the [facility] Office of Mental Health; or Provided by the [facility] Office for People With Developmental Disabilities. If such information is present, then the following [facility] mandated warning applies: This information has been disclosed to you from confidential records which are protected by state law. State law prohibits you from making any further disclosure of this information without the specific written consent of the person to whom it pertains, or as otherwise permitted by law. Any unauthorized further disclosure in violation of state law may result in a fine or snf sentence or both. A general authorization for the release of medical or other information is NOT sufficient authorization for further disc losure. Allergies and Adverse Reactions Type Description Substance Reaction Status Data Source(s ) Drug Allergy Drug Allergy NKDA MEDENT ([facility]) Family History Family Member Name Family Member Gender Family Member Status Date o f Status Description Data Source(s) Unknown Male Problem [facility] ([facility]) Unknown Female Problem MEDENT ([facility]) Encounters Encounter Providers Location Date Indications Data Source(s ) Outpatient [address] [facility] [address] 05/27/2021 12:00:00 AM EST eCW1 ([facility]) Outpatient Attender: MEHREEN NOONAN-SJP.FRITZ 12:00:00 AM EDT - 05/04/2021 02:15:28 PM EDT [facility] Outpatient Attender: VAMSHI Goff/[place]elland/Sreedhar/Rein dl 04/22/2021 01:15:00 PM EDT MEDENT ([facility]) Outpatient Attender: JACK Goff/[place]/Sreedhar/Rein dl 04/20/2021 10:30:00 AM EDT MED[facility] ([facility]) Unknown [address] [facility], [facility] [address] 04/14/2021 12:00:00 AM EDT eCW1 ([facility]) Outpatient Referrer: MEHREEN RANDHAWASJP.FRITZ 12:00:00 AM EDT [facility] Outpatient [address] [facility] [address] 02/23/2021 12:00:00 AM EDT eCW1 ([facility]) Outpatient Attender: MEHREEN NONOAN-SJP.FRITZ 01:30:01 PM EDT - 02/01/2021 02:46:36 PM EDT [facility] TeleMedicine Phone E/M by Phys 21-30 Min [address] [place] [address] 01/21/2021 12:00:00 AM EDT eCW1 ([facility]) Unknown [address] [facility] [address] 01/20/2021 12:00:00 AM EDT eCW1 ([facility]) Outpatient Attender: MEHREEN NOONAN-SJPSydneyFRITZ 06/2021 01:17:58 PM EDT - 01/18/2021 02:40:24 PM EDT [facility] Outpatient Attender: MEHREEN NOONAN-SJP.FRITZ 01/2021 09:37:39 AM EDT - 01/13/2021 10:40:51 AM EDT [facility] Unknown [address] [facility] [address] 01/13/2021 12:00:00 AM EDT eCW1 ([facility]) Unknown [address] [facility] [address] 01/08/2021 12:00:00 AM EDT eCW1 ([facility]) Outpatient [address] [facility] [address] 01/05/2021 12:00:00 AM EDT eCW1 ([facility]) Outpatient Attender: MEHREEN NOONAN-SJP.FRITZ 09:23:39 AM EDT - 12/30/2020 10:37:03 AM EDT [facility] Outpatient Attender: MEHREEN NOONAN-SJP.FRITZ 03/2021 10:53:58 AM EDT - 12/16/2020 12:37:06 PM EDT [facility] Outpatient Attender: MEHREEN NOONAN-SJP.FRITZ 12:00:00 AM EDT - 11/30/2020 11:50:31 AM EDT [facility] Outpatient [address] [facility] [address] 11/27/2020 12:00:00 AM EDT eCW1 ([facility]) Outpatient Attender: MEHREEN NOONAN-SJP.FRITZ 09/2020 10:52:02 AM EDT - 11/09/2020 12:23:19 PM EDT [facility] Unknown [address] [facility] [address] 10/30/2020 12:00:00 AM EDT eCW1 ([facility]) Outpatient Attender: MEHREEN NOONAN-SJP.FRITZ 10:08:27 AM EDT [facility] Unknown [address] [facility] [address] 08/20/2020 12:00:00 AM EST eCW1 ([facility]) Outpatient [address] [facility], [facility] [address] 08/17/2020 12:00:00 AM EST eCW1 ([facility]) Outpatient Attender: MEHREEN NOONAN-SJP.FRITZ 12:00:00 AM EST - 07/28/2020 12:12:29 PM EST [facility] Outpatient Referrer: MEHREEN NOONAN-SJPSydneyFRITZ 12:00:00 AM EST [facility] Outpatient [address] [facility] [address] 06/12/2020 12:00:00 AM EST eCW1 ([facility]) Outpatient Attender: MEHREEN NOONAN-SJP.FRITZ 09:51:23 AM EST - 06/01/2020 10:48:07 AM EST [facility] Unknown [address] [facility], [place] [address] 05/22/2020 12:00:00 AM EST eCW1 ([facility]) Outpatient Attender: Justin NOONAN-SJP.FRITZ 05/10 12:00:00 AM EST - 05/19/2020 03:08:38 PM EST [facility] Outpatient [address] [facility] [address] 05/15/2020 12:00:00 AM EST eCW1 ([facility]) Outpatient Attender: Justin RANDHAWASJP.FRITZ 09/2019 12:00:00 AM EST - 05/12/2020 11:11:03 AM EST [facility] Outpatient [address] [facility] [address] 05/07/2020 12:00:00 AM EDT eCW1 ([facility]) Immunizations Vaccine Date Status Description Data Source(s) influenza, recombinant, quadrIvalent,injectable, prese rvative free 05/27/2021 12:07:00 PM EST completed eCW1 ([facility]) COVID-19 VACCINE Moderna 10/08/2020 12:00:00 AM EDT completed [facility] Vaccine Series Complete: YESThis Data wa s Submitted to [facility] Via [employer]. COVID-19 VACCINE Moderna 09/10/2020 12:00:00 AM EST completed [facility] Vaccine Series Complete: NOThis Data was Submitted to [facility] Via [employer]. Medications Medication Brand Name Start Date Product Form Dose Route Admi nistrative Instructions Pharmacy Instructions Status Indications Reaction Description Data Source(s) Amiodarone hydrochloride 200 MG Oral Tablet AMIODARONE HCL 04/12/2021 12:00:00 AM EDT tablet 90 TAKE ONE TABLET BY MOUTH COBY DAY TAKE ONE TABLET BY MOUTH EVERY DAY SOLD: 04/12/2021 [facility] Amiodarone hydrochloride 200 MG Oral Tablet amiodarone (PACERONE) 200 MG tablet amiodarone (PACERONE) 200 MG tablet 04/11/2021 12:00:00 AM EDT 200 mg Oral active Take 1 tablet (200 mg total) by mouth daily [facility] Lactulose 667 MG/ML Oral Solution Lactulose 10 GM/15ML Lactu lose 10 GM/15ML 02/23/2021 12:00:00 AM EDT 15.0 {ml} active Lactulose 10 GM/15ML eCW1 ([facility]) Lactulose 667 MG/ML Oral Solution lactulose (CHRONULAC ) 10 GM/15ML solution lactulose (CHRONULAC) 10 GM/15ML solution 02/23/2021 12:00:00 AM EDT active [facility] Lactulose 667 MG/ML Oral Solution Lactulose 10 GM/15ML Lactu lose 10 GM/15ML 02/23/2021 12:00:00 AM EDT 15.0 {ml} active Lactulose 10 GM/15ML eCW1 ([facility]) Lactulose 667 MG/ML Oral Solution Lactulose 10 GM/15ML Lactu lose 10 GM/15ML 02/23/2021 12:00:00 AM EDT 15.0 {ml} active Lactulose 10 GM/15ML eCW1 ([facility]) Amiodarone hydrochloride 200 MG Oral Tablet AMIODARONE HCL 02/09/2021 12:00:00 AM EDT tablet 30 TAKE ONE TABLET BY MOUTH COBY RY DAY TAKE ONE TABLET BY MOUTH EVERY DAY SOLD: 02/12/2021 [facility] torsemide 100 MG Oral Tablet torsemide (DEMADEX) 100 M G tablet torsemide (DEMADEX) 100 MG tablet 02/01/2021 12:00:00 AM EDT 50 mg Oral active Take 0.5 tablets (50 mg total) by mouth daily [facility] Amiodarone hydrochloride 200 MG Oral Tablet amiodarone (PACERONE) 200 MG tablet amiodarone (PACERONE) 200 MG tablet 02/01/2021 12:00:00 AM EDT 200 mg Oral active Take 1 tablet (200 mg total) by mouth daily [facility] rivaroxaban 20 MG Oral Tablet rivaroxaban (Xarelto) 20 MG TABS rivaroxaban (Xarelto) 20 MG TABS 02/01/2021 12:00:00 AM EDT 20 mg Oral active Take 1 tablet (20 mg total) by mouth daily [facility] Spironolactone 25 MG Oral Tablet spironolactone (ALDAC TONE) 25 MG tablet spironolactone (ALDACTONE) 25 MG tablet 02/01/2021 12:00:00 AM EDT 25 mg Oral active Take 1 tablet (25 mg tota l) by mouth daily [facility] Metoprolol Tartrate 50 MG Oral Tablet me toprolol tartrate (LOPRESSOR) 50 MG tablet metoprolol tartrate (LOPRESSOR) 50 MG tablet 02/01/2021 12:0 0:00 AM EDT 50 mg Oral active Take 1 tablet (5 0 mg total) by mouth 2 (two) times a day [facility] Amiodarone hydrochloride 200 MG Oral Tablet amiodarone (PACERONE) 200 MG tablet amiodarone (PACERONE) 200 MG tablet 01/18/2021 12:00:00 AM EDT 200 mg Oral aborted Take 1 tablet (200 mg total) by mouth 2 (two) times a day [facility] 100 mg 01/14/2021 12:00:00 AM EDT tablet 30 TAKE ONE TABLET BY MOUTH EVERY DAY TAKE ONE TABLET BY MOUTH EVERY DAY SOLD: 01/15/2021 [employer] torsemide 100 MG Oral Tablet torsemide (DEMADEX) 100 M G tablet torsemide (DEMADEX) 100 MG tablet 01/13/2021 12:00:00 AM EDT 100 mg Oral aborted Take 1 tablet (100 mg total) by mouth daily [facility] Spironolactone 25 MG Oral Tablet spironolactone (ALDAC TONE) 25 MG tablet spironolactone (ALDACTONE) 25 MG tablet 01/13/2021 12:00:00 AM EDT 25 mg Oral aborted Take 1 tablet (25 mg tota l) by mouth daily [facility] Metoprolol Tartrate 50 MG Oral Tablet me toprolol tartrate (LOPRESSOR) 50 MG tablet metoprolol tartrate (LOPRESSOR) 50 MG tablet 01/13/2021 12:0 0:00 AM EDT 50 mg Oral aborted Take 1 tablet (5 0 mg total) by mouth 2 (two) times a day [facility] rivaroxaban 20 MG Oral Tablet rivaroxaban (Xarelto) 20 MG TABS rivaroxaban (Xarelto) 20 MG TABS 01/05/2021 12:00:00 AM EDT 20 mg Oral aborted Take 1 tablet (20 mg total) by mouth daily [facility] 20 mg 12/30/2020 12:00:00 AM EDT tablet 30 TAKE ONE TABLET BY MOUTH EVERY DAY TAKE ONE TABLET BY MOUTH EVERY DAY SOLD: 12/31/2020 [facility] Spironolactone 50 MG Oral Tablet spironolactone (ALDAC TONE) 50 MG tablet spironolactone (ALDACTONE) 50 MG tablet 12/30/2020 12:00:00 AM EDT 50 mg Oral aborted Take 1 tablet (50 mg tota l) by mouth daily [facility] torsemide 20 MG Oral Tablet torsemide (DEMADEX) 20 MG tablet torsemide (DEMADEX) 20 MG tablet 12/30/2020 12:00:00 AM EDT 20 mg Oral abort ed Take 1 tablet (20 mg total) by mouth daily [facility] torsemide 20 MG Oral Tablet torsemide (DEMADEX) 20 MG tablet torsemide (DEMADEX) 20 MG tablet 12/30/2020 12:00:00 AM EDT 20 mg Oral abort ed Take 1 tablet (20 mg total) by mouth daily [facility] Metoprolol Tartrate 100 MG Oral Tablet m etoprolol tartrate (LOPRESSOR) 100 MG tablet metoprolol tartrate (LOPRESSOR) 100 MG tablet 11/30/2020 12: 00:00 AM EDT 100 mg Oral aborted Take 1 tablet (1 00 mg total) by mouth 2 (two) times a day [facility] Amiodarone hydrochloride 200 MG Oral Tablet amiodarone (PACERONE) 200 MG tablet amiodarone (PACERONE) 200 MG tablet 11/30/2020 12:00:00 AM EDT 200 mg Oral aborted Take 1 tablet (200 mg total) by mouth 2 (two) times a day [facility] Losartan Potassium 50 MG Oral Tablet losartan (COZAAR) 50 MG tablet losartan (COZAAR) 50 MG tablet 11/30/2020 12:00:00 AM EDT 50 mg Oral aborted Take 1 tablet (50 mg total) by mouth daily [facility] rivaroxaban 20 MG Oral Tablet rivaroxaban (Xarelto) 20 MG TABS rivaroxaban (Xarelto) 20 MG TABS 11/30/2020 12:00:00 AM EDT 20 mg Oral active Take 1 tablet (20 mg total) by mouth daily [facility] Spironolactone 25 MG Oral Tablet spironolactone (ALDAC TONE) 25 MG tablet spironolactone (ALDACTONE) 25 MG tablet 11/30/2020 12:00:00 AM EDT 25 mg Oral aborted Take 1 tablet (25 mg tota l) by mouth daily [facility] Metoprolol Tartrate 100 MG Oral Tablet m etoprolol tartrate (LOPRESSOR) 100 MG tablet metoprolol tartrate (LOPRESSOR) 100 MG tablet 11/30/2020 12: 00:00 AM EDT 100 mg Oral aborted Take 1 tablet (1 00 mg total) by mouth 2 (two) times a day for 28 doses [facility] Metoprolol Tartrate 100 MG Oral Tablet m etoprolol tartrate (LOPRESSOR) 100 MG tablet metoprolol tartrate (LOPRESSOR) 100 MG tablet 11/30/2020 12: 00:00 AM EDT 100 mg Oral aborted Take 1 tablet (1 00 mg total) by mouth 2 (two) times a day [facility] Furosemide 40 MG Oral Tablet furosemide (LASIX) 40 MG tablet furosemide (LASIX) 40 MG tablet 10/26/2020 12:00:00 AM EDT 40 mg Oral abort ed Take 1 tablet (40 mg total) by mouth daily [facility] Metoprolol Tartrate 100 MG Oral Tablet m etoprolol tartrate (LOPRESSOR) 100 MG tablet metoprolol tartrate (LOPRESSOR) 100 MG tablet 07/28/2020 12: 00:00 AM EST 100 mg Oral aborted Take 1 tablet (1 00 mg total) by mouth 2 (two) times a day [facility] Shingrix 50 mcg/0.5 mL UNK 06/12/2020 12:00:00 AM EST active Shingrix 50 mcg/0.5 mL eCW1 ([facility]) Shingrix 50 mcg/0.5 mL UNK 06/12/2020 12:00:00 AM EST active Shingrix 50 mcg/0.5 mL eCW1 ([facility]) Shingrix 50 mcg/0.5 mL UNK 06/12/2020 12:00:00 AM EST active Shingrix 50 mcg/0.5 mL eCW1 ([facility]) Shingrix 50 mcg/0.5 mL UNK 06/12/2020 12:00:00 AM EST active Shingrix 50 mcg/0.5 mL eCW1 ([facility]) Shingrix 50 mcg/0.5 mL UNK 06/12/2020 12:00:00 AM EST active Shingrix 50 mcg/0.5 mL eCW1 ([facility]) Shingrix 50 mcg/0.5 mL UNK 06/12/2020 12:00:00 AM EST active Shingrix 50 mcg/0.5 mL eCW1 ([facility]) Shingrix 50 mcg/0.5 mL UNK 06/12/2020 12:00:00 AM EST active Shingrix 50 mcg/0.5 mL eCW1 ([facility]) Shingrix 50 mcg/0.5 mL UNK 06/12/2020 12:00:00 AM EST active Shingrix 50 mcg/0.5 mL eCW1 ([facility]) Shingrix 50 mcg/0.5 mL UNK 06/12/2020 12:00:00 AM EST active Shingrix 50 mcg/0.5 mL eCW1 ([facility]) Metoprolol Tartrate 100 MG Oral Tablet m etoprolol tartrate (LOPRESSOR) 100 MG tablet metoprolol tartrate (LOPRESSOR) 100 MG tablet 05/19/2020 12: 00:00 AM EST 100 mg Oral aborted Take 1 tablet (1 00 mg total) by mouth 2 (two) times a day [facility] 25 mg 05/08/2020 12:00:00 AM EDT tablet 60 TAKE ONE TABLET BY MOUTH TWICE A DAY TAKE ONE TABLET BY MOUTH TWICE A DAY SOLD: 05/08/2020 [facility] Metoprolol Tartrate 25 MG Oral Tablet me toprolol tartrate (LOPRESSOR) 25 MG tablet metoprolol tartrate (LOPRESSOR) 25 MG tablet 05/08/2020 12:0 0:00 AM EDT 50 mg Oral active Take 50 mg by mo uth 2 (two) times a day [facility] cetirizine hydrochloride 10 MG Oral Capsule Cetirizine HCl 10 MG CAPS Cetirizine HCl 10 MG CAPS 12/19/2017 12:00:00 AM EDT aborted as needed [facility] Losartan Potassium 50 MG Oral Tablet losartan (COZAAR) 50 MG tablet losartan (COZAAR) 50 MG tablet 12/19/2017 12:00:00 AM EDT Oral aborted Take by mouth daily [facility] Losartan Potassium 25 MG Oral Tablet losartan (COZAAR) 25 MG tablet losartan (COZAAR) 25 MG tablet 25 mg Oral aborted Ta ke 25 mg by mouth daily [facility] Colchicine 0.6 MG Oral Tablet colchicine 0.6 MG tablet colch icine 0.6 MG tablet aborted 1 TABLET BID PRN ORALLY 90 DAYS [facility] INDOMETHACIN PO drug or medication Oral abo rted Take by mouth as needed [facility] Insurance Providers Payer name Policy type / Coverage type Policy ID Covered alliance party ID Covered alliance party's relationship to holguin Policy [place] Plan Information [employer] [id number] [facility] [id number] [employer] (pr) Commercial [id number] Family Dependent UMR [id number] Spo [id number] UMR [id number] xxxxxxxxx [id number] [employer] [id number] Spo [id number] [employer] [id number] [facility] [id number] ANSI-Commercial [id number] [employer] [id number] [facility] [id number] [employer] PHCS Ppo Medigap Part B [id number] Self [id number] [employer] Commercial [id number] Family Dependent [id number] [employer] Ppo Medigap Part B [id number] Self [id number] [employer] Commercial [id number] 2..1.892214.3.227.99.5 [id number] Family Dependent [id number] [facility] Ppo Medigap Part B [id number] ..[id number]. [id number] Self [id number] Umr Commercial [id number] 72.47925.0 Family Dependent [id number] [facility] Ppo Medigap Part B [id number] 2.16840.1.039451.3.227. [id number] Self [id number] Umr Commercial [id number] 2.840.1.176973.3.227.99.5 72.21982.0 Family Dependent [id number] ANSI-Commercial [id number] [facility] PI PI ANSI-Commercial [id number] [facility] Ppo Medigap Part B [id number] 2.0.1.275669.3.227. [id number] Self [id number] Umr Commercial [id number] [id number] 72.36754.0 Family Dependent [id number] [facility] Ppo Medigap Part B [id number] 2.0.1.862275.3.227. [id number] Self [id number] Umr Commercial [id number] 2.0.1.285565.3.227.99.5 72.11492.0 Family Dependent [id number] [facility] Ppo Commercial [id number] 2.840.1.578873.3.227.99.572.3 4067.0 Self [id number] [facility] [id number] [facility] [id number] [facility] Ppo Commercial [id number] [id number] 4067.0 Self [id number] [facility] PPO O [id number] P [id number] [facility] [id number] SP [id number] [facility] [id number] 01 [id number] 90 R [facility] [id number] WI2 [id number] [facility]-O/P [id number] 01 [id number] [facility] [id number] HU2 [id number] UMR O [id number] S [id number] [facility] Ppo Medigap Part B [id number] Self [id number] Umr Commercial [id number] Family Dependent [id number] ANSI-Commercial [id number] Problems, Conditions, and Diagnoses Code Display Name Description Problem Type Effective Dates Data Source(s) I48.92 Unspecified atrial flutter Unspecified atrial flutter Diagnosis 05/04/2021 12:56:50 PM EDT [facility] F10.10 Alcohol abuse, uncomplicated Alcohol abuse, uncomplica deandre Diagnosis 02/01/2021 01:30:01 PM EDT [facility] R06.02 Shortness of breath Shortness of breath Diagnosis 0 02/01/2021 01:30:01 PM EDT [facility] I48.4 Atypical atrial flutter Atypical atrial flutter Diagno sis 12/30/2020 09:23:39 AM EDT [facility] I10 Essential (primary) hypertension Essential (primary) h ypertension Diagnosis 11/30/2020 10:33:08 AM EDT [facility] E78.5 Hyperlipidemia, unspecified Hyperlipidemia, unspecifie d Diagnosis 11/30/2020 10:33:08 AM EDT [facility] Z68.35 Body mass index (BMI) 35.0-35.9, adult B sudha mass index (BMI) 35.0-35.9, adult Diagnosis 11/09/2020 10:52:02 AM EDT [facility] E66.09 Other obesity due to excess calories Oth er obesity due to excess calories Diagnosis 11/09/2020 10:52:02 AM EDT [facility] I48.3 Typical atrial flutter Typical atrial flutter Diagnosi s 05/12/2020 10:22:55 AM EST [facility] Z23 [id number] Encounter for immunization Problem 12:00:00 AM EST eC1 ([facility]) G93.40 [id number] Encephalopathy Problem 02/23/2021 12:00:00 A M EDT eCW1 ([facility]) D50.8 [id number] Other iron deficiency anemia Problem 021 12:00:00 AM EDT eCW1 ([facility]) K70.30 [id number] 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 Problem 01/21/2021 12:00:00 AM EDT eCW1 ([facility]) M1A.9XX0 [id number] Chronic gout without tophus, unspecified cause, unspecified site Problem 01/05/2021 12:00:00 AM EDT eCW1 ([facility]) N40.0 Benign prostatic hypertrophy without out flow obstruction Benign prostatic hyperplasia without lower urinary tract symptoms Problem 08/17 12:00:00 AM EST eCW1 ([facility]) E66.9 Class 2 obesity in adult Class 2 obesity in adult 6457 200006/01/2020 12:00:00 AM EST [facility] E78.5 Hyperlipidemia, unspecified Hyperlipidemia, unspecifie d [id number] 05/17/2020 12:00:00 AM EST [facility] M10.9 Gout, unspecified Gout, unspecified [id number] 05/17/2020 12:00:00 AM EST [facility] N52.9 Erectile dysfunction Erectile dysfunction [id number] 05/17/2020 12:00:00 AM EST [facility] D64.9 Anemia Anemia [id number] 05/17/2020 12:00:00 AM ES T [facility] K76.0 [id number] Fatty liver Problem 05/07/2020 12:00:00 AM E DT eCW1 ([facility]) I48.91 [id number] Rapid atrial fibrillation Problem 05/07/2020 12:00:00 AM EDT eCW1 ([facility]) I50.9 Heart failure Acute congestive hea rt failure, unspecified heart failure type Problem 05/07/2020 12:00:00 AM EDT eCW1 ([facility]) I48.0 [id number] Paroxysmal atrial fibrillation Problem 05/07/2020 12:00:00 AM EDT eCW1 ([facility]) Surgeries/Procedures Procedure Description Date Indications Data Source(s) Imm: Flublok Quadrivalent 18 years & older 0.5mL IM Influenz a 05/27/2021 12:00:00 AM EST eCW1 ([facility]) ECG ROUTINE ECG W/LEAST 12 LDS W/I&R <td>POCT AMB EKG</td><td>Routine</td><td>05/04/2021 5:11 PM EDT</td><td> Atrial flutter</td><td> </td> 05/04/2021 05:11:00 PM EDT Atrial flutter [facility] Atrial flutter OFFICE OUTPATIENT NEW 45 MINUTES 04/22/2021 12:00:00 A M EDT MEDENT ([facility]) OFFICE OUTPATIENT NEW 30 MINUTES 04/20/2021 12:00:00 A M EDT MEDENT ([facility]) ECG ROUTINE ECG W/LEAST 12 LDS W/I&R <td>POCT AMB EKG</td><td>Routine</td><td>02/01/2021 3:39 PM EDT</td><td> Shortness of breath</td><td> </td> 02/01/2021 03:39:00 PM EDT Shortness of breath [facility] Shortness of breath ECG ROUTINE ECG W/LEAST 12 LDS W/I&R <td>POCT AMB EKG</td><td>Routine</td><td>01/18/2021 5:31 PM EDT</td><td> Atrial flutter</td><td> </td> 01/18/2021 05:31:00 PM EDT Atrial flutter [facility] Atrial flutter ECG ROUTINE ECG W/LEAST 12 LDS W/I&R <td>POCT AMB EKG</td><td>Routine</td><td>01/13/2021 11:38 AM EDT</td><td> Atrial flutter</td><td> </td> 01/13/2021 11:38:00 AM EDT Atrial flutter [facility] Atrial flutter ECG ROUTINE ECG W/LEAST 12 LDS W/I&R <td>POCT AMB EKG</td><td>Routine</td><td>12/31/2020 5:18 PM EDT</td><td> Atypical atrial flutter</td><td> </td> 12/31/2020 05:18:00 PM EDT Atypical atrial flutter [facility] Atypical atrial flutter BLOOD COUNT COMPLETE AUTOMATED <td>CBC</td><td>Routine </td><td>12/30/2020 2:30 PM EDT</td><td> Atypical atrial flutter</td><td> </td> 12/30/2020 02:30:00 PM EDT Atypical atrial flutter [facility] Atypical atrial flutter ECG ROUTINE ECG W/LEAST 12 LDS W/I&R <td>POCT AMB EKG</td><td>Routine</td><td>12/16/2020 4:29 PM EDT</td><td> Atypical atrial flutter</td><td> </td> 12/16/2020 04:29:00 PM EDT Atypical atrial flutter [facility] Atypical atrial flutter BASIC METABOLIC PANEL CALCIUM TOTAL <td>BASIC METABOLI C PANEL</td><td>Routine</td><td>12/16/2020</td><td></td><td> </td> 12/16/2020 12:00:00 AM EDT [facility] ECG ROUTINE ECG W/LEAST 12 LDS W/I&R <td>POCT AMB EKG</td><td>Routine</td><td>11/30/2020 4:03 PM EDT</td><td> Atypical atrial flutter</td><td> </td> 11/30/2020 04:03:00 PM EDT Atypical atrial flutter [facility] Atypical atrial flutter ECG ROUTINE ECG W/LEAST 12 LDS W/I&R <td>POCT AMB EKG</td><td>Routine</td><td>11/09/2020 9:09 PM EDT</td><td> Atrial flutter</td><td> </td> 11/09/2020 09:09:00 PM EDT Atrial flutter [facility] Atrial flutter ECG ROUTINE ECG W/LEAST 12 LDS W/I&R <td>POCT AMB EKG</td><td>Routine</td><td>10/26/2020 10:59 AM EDT</td><td> Class 2 obesity due to excess calories without serious comorbidity with body mass index (BMI) of 35.0 to 35.9 in adult Hyperlipidemia, unspecified hyperlipidemia type</td><td> </td> 10/26/2020 02:59:00 PM EDT Hyperlipidemia, unspecified hyperlipidem ia typeClass 2 obesity due to excess calories without serious comorbidity with body mass index (BMI) of 35.0 to 35.9 in adult [facility] Hyperlipidemia, unspecified hyperlipidem ia type Class 2 obesity due to excess calories w ithout serious comorbidity with body mass index (BMI) of 35.0 to 35.9 in adult ECG ROUTINE ECG W/LEAST 12 LDS W/I&R <td>POCT AMB EKG</td><td>Routine</td><td>07/28/2020 12:32 PM EST</td><td> Atrial flutter</td><td> </td> 07/28/2020 05:32:00 PM EST Atrial flutter [facility] Atrial flutter POCT AMB EKG <td>POCT AMB EKG</td><td>Rou kimmy</td><td>06/01/2020 2:40 PM EST</td><td> Atrial flutter</td><td> </td> 06/01/2020 07:40:00 PM EST Atrial flutter [facility] Atrial flutter ECG ROUTINE ECG W/LEAST 12 LDS W/I&R <td>POCT AMB EKG</td><td>Routine</td><td>05/12/2020 11:12 AM EST</td><td> Typical atrial flutter Shortness of breath Alcohol abuse</td><td> </td> 05/12/2020 04:12:00 PM EST Alcohol abuseShortness of breathTypical atrial flutter [facility] Alcohol abuse Shortness of breath Typical atrial flutter ECG ROUTINE ECG W/LEAST 12 LDS W/I&R 05/07/2020 12:00: 00 AM EDT eCW1 ([facility]) BLOOD COUNT COMPLETE AUTO&AUTO DIFRNTL WBC COUNT <td>C BC AND DIFFERENTIAL</td><td>Routine</td><td>04/30/2020</td><td></td><td> </td> 04/30/2020 12:00:00 AM EDT [facility] THYROID STIMULATING HORMONE TSH <td>TSH</td><td>Routine</td><td>04/30/2020</td><td></td><td> </td> 04/30/2020 12:00:00 AM EDT [facility] HEMOGLOBIN GLYCOSYLATED A1C <td>HEMOGLOBIN A1C</td><td>Routine</td><td>04/30/2020</td><td></td><td> </td> 04/30/2020 12:00:00 AM EDT [facility] LIPID PANEL <td>LIPID PANEL</td><td>Rout ine</td><td>04/30/2020</td><td></td><td> </td> 04/30/2020 12:00:00 AM EDT [facility] BASIC METABOLIC PANEL CALCIUM TOTAL <td>BASIC METABOLI C PANEL</td><td>Routine</td><td>04/30/2020</td><td></td><td> </td> 04/30/2020 12:00:00 AM EDT [facility] Results ID Date Data Source [id number] 06/05/2021 11:55:00 AM EST [facility] Name Value Range Interpretation Code Description Data Eloisa rce(s) Supporting Document(s) SARS-CoV-2 (COVID-19) RNA [Presence] in Respiratory specimen by [facility] with probe detection Not Detected [facility] This lab was ordered by [facility] and reported by [facility]. ID Date Data Source [id number] 05/05/2021 09:59:52 PM EDT [facility] Name Value Range Interpretation Code Description Data Eloisa rce(s) Supporting Document(s) WBC 11.7 10*3/uL (4.1-11.0) H [facility] RBC 3.41 10*6/uL (4.60-6.10) L [facility] HGB 10.5 g/dL (13.5-18.0) [facility] HCT 34.6 % (41.0-53.0) [facility] MCV 101.4 fL (80.0-95.0) [facility] MCH 31.0 pg (27.0-32.0) [facility] MCHC 30.5 g/dL (32.0-36.0) [facility] RDW 20.4 % (10.5-14.5) H [facility] PLT 239 10*3/uL (150-450) [facility] MPV 8.9 fL (7.1-10.7) [facility] ID Date Data Source [id number] 01/20/2021 07:19:00 AM EDT [facility] FASTING: UNKNOWNReceived: 01/20/2021 at 07:09:00 QPT: [facility], [address], [address] [place], [address], Denis Pryor MD Name Value Range Interpretation Code Description Data Eloisa rce(s) Supporting Document(s) Glucose [Mass/volume] in Serum or Plasma 85 mg/dL 65-99 Normal (applies to non- numeric results) [facility] Fasting reference interval Urea nitrogen [Mass/volume] in Serum or Plasma 15 mg/dL 7 -25 Normal (applies to non-numeric results) [facility] Creatinine [Mass/volume] in Serum or Plasma 1.22 mg/dL 0.70 -1.33 Normal (applies to non-numeric results) [facility] For patients >49 years of age, the refer ence limitfor Creatinine is approximately 13% higher for peopleidentified as -Gibraltarian. eGFR NON-AFR. MALIAN 65 mL/min/1.73m2 > OR = 60 Normal ( applies to non-numeric results) [facility] eGFR 75 mL/min/1.73m2 > OR = 60 Normal (a pplies to non-numeric results) [facility] Urea nitrogen/Creatinine [Mass Ratio] in Serum or Plasma NOT APPLICABLE (calc) 6-22 [facility] Sodium [Moles/volume] in Serum or Plasma 134 mmol/L 135-146 Below low normal [facility] Potassium [Moles/volume] in Serum or Plasma 4.0 mmol/L 3.5- 5.3 Normal (applies to non-numeric results) [facility] Chloride [Moles/volume] in Serum or Plasma 93 mmol/L 98-110 Belo w low normal [facility] Carbon dioxide, total [Moles/volume] in Serum or Plasma 27 mmol/ L 20-32 Normal (applies to non-numeric results) [facility] Calcium [Mass/volume] in Serum or Plasma 9.4 mg/dL 8.6-10. 3 Normal (applies to non-numeric results) [facility] Your request to have a duplicate copy faxed has been acknowledged. Queued to: [id number] COLLECTION DATE RECEIVED. WE HAVE USEDTHE DATE THE SPECIMEN WAS [facility]ED [facility] THE COLLECTION DATE. IF THISIS INCORRECT, PLEASE CONTACT CLIENT SERVICES.PHONE NUMBER: [phone] ID Date Data Source [id number] 12/21/2020 05:43:00 PM EDT [facility] FASTING: UNKNOWNReceived: 12/17/2020 at 06:25:00 QPT: [facility], [address], [address] [place] [address], [phone], Denis Pryor MD Received: 12/17/2020 at 06:25:00 QPT : [facility], [address], [address] [place] [address], [phone], Denis Pryor MD Received: 12/17/2020 at 06:25:00 AMD : [facility], [address], [place], [address], John rBight M.D.,PhD Name Value Range Interpretation Code Description Data Eloisa rce(s) Supporting Document(s) Glucose [Mass/volume] in Serum or Plasma 99 mg/dL 65-99 Normal (applies to non- numeric results) [facility] Fasting reference interval Urea nitrogen [Mass/volume] in Serum or Plasma 8 mg/dL 7 -25 Normal (applies to non-numeric results) [facility] Creatinine [Mass/volume] in Serum or Plasma 0.97 mg/dL 0.70 -1.33 Normal (applies to non-numeric results) [facility] For patients >49 years of age, the refer ence limitfor Creatinine is approximately 13% higher for peopleidentified as -Gibraltarian. eGFR NON-AFR. MALIAN 86 mL/min/1.73m2 > OR = 60 Normal ( applies to non-numeric results) [facility] eGFR 99 mL/min/1.73m2 > OR = 60 Normal (a pplies to non-numeric results) [facility] Urea nitrogen/Creatinine [Mass Ratio] in Serum or Plasma NOT APPLICABLE (calc) 6-22 [facility] Sodium [Moles/volume] in Serum or Plasma 135 mmol/L 135-146 Normal (applies to non-numeric results) [facility] Potassium [Moles/volume] in Serum or Plasma 4.5 mmol/L 3.5- 5.3 Normal (applies to non-numeric results) [facility] Chloride [Moles/volume] in Serum or Plasma 100 mmol/L 98-11 0 Normal (applies to non-numeric results) [facility] Carbon dioxide, total [Moles/volume] in Serum or Plasma 21 mmol/ L 20-32 Normal (applies to non-numeric results) [facility] Calcium [Mass/volume] in Serum or Plasma 9.4 mg/dL 8.6-10. 3 Normal (applies to non-numeric results) [facility] Protein [Mass/volume] in Serum or Plasma 7.1 g/dL 6.1-8.1 Normal (applies to non-numeric results) [facility] Albumin [Mass/volume] in Serum or Plasma 3.9 g/dL 3.6-5.1 Normal (applies to non-numeric results) [facility] Globulin [Mass/volume] in Serum by calculation 3.2 g/dL (calc) 1 .9-3.7 Normal (applies to non-numeric results) [facility] Albumin/Globulin [Mass Ratio] in Serum or Plasma 1.2 (calc) 1.0-2.5 Normal (applies to non-numeric results) [facility] Bilirubin.total [Mass/volume] in Serum or Plasma 0.9 mg/dL 0.2-1.2 Normal (applies to non-numeric results) [facility] Alkaline phosphatase [Enzymatic activity/volume] in Serum or Plasma 87 U/L 35-144 Normal (applies to non-numeric results) [facility] Aspartate aminotransferase [Enzymatic activity/volume] in Serum or Plasma 58 U/L 10-35 Above high normal [facility] Alanine aminotransferase [Enzymatic activity/volume] in Seru m or Plasma 24 U/L 9-46 Normal (applies to non-numeric results) [facility] ID Date Data Source [id number] 12/21/2020 05:43:00 PM EDT [facility] FASTING: UNKNOWNReceived: 12/17/2020 at 06:25:00 QPT: [facility], [address] [place] [address], [address] [place] [address], [phone], Denis Pryor MD Received: 12/17/2020 at 06:25:00 QPT : [facility], [address], [address] [place] [address], [phone], Denis Pryor MD Received: 12/17/2020 at 06:25:00 AMD : [facility], [address], [place], [address], John Bright M.D.,PhD Name Value Range Interpretation Code Description Data Eloisa rce(s) Supporting Document(s) Leukocytes [#/volume] in Blood by Automated count 11.9 Thousand/ uL 3.8-10.8 Above high normal [facility] Erythrocytes [#/volume] in Blood by Automated count 4.09 Million /uL 4.20-5.80 Below low normal [facility] Hemoglobin [Mass/volume] in Blood 14.1 g/dL 13.2-17.1 Normal (applies to non- numeric results) [facility] Hematocrit [Volume Fraction] of Blood by Automated count 42.3 % 38.5-50.0 Normal (applies to non-numeric results) [facility] Erythrocyte mean corpuscular volume [Entitic volume] b y Automated count 103.4 fL 80.0-100.0 Above high normal [facility] Erythrocyte mean corpuscular hemoglobin [Entitic mass] by Automated count 34.5 pg 27.0-33.0 Above high normal [facility] Erythrocyte mean corpuscular hemoglobin concentration [Mass/volume] by Automated count 33.3 g/dL 32.0-36.0 Normal (applies to non-numeric results) [facility] Erythrocyte distribution width [Ratio] by Automated count 14.3 % 11.0-15.0 Normal (applies to non-numeric results) [facility] Platelets [#/volume] in Blood by Automated count 181 Thousand/uL 140-400 Normal (applies to non-numeric results) [facility] Platelet mean volume [Entitic volume] in Blood by Philip-Francisco 9.4 fL 7.5-12.5 Normal (applies to non-numeric results) [facility] ID Date Data Source [id number] 12/21/2020 05:43:00 PM EDT [facility] FASTING: UNKNOWNReceived: 12/17/2020 at 06:25:00 QPT: [facility], [address], [address] [place] [address], [phone], Denis Pryor MD Received: 12/17/2020 at 06:25:00 QPT : [facility], [address], [address] [place] [address], [phone], Denis Pryor MD Received: 12/17/2020 at 06:25:00 AMD : [facility], [address], [place], [address], John Bright M.D.,PhD Name Value Range Interpretation Code Description Data Eloisa rce(s) Supporting Document(s) Natriuretic peptide.B prohormone N-Terminal [Mass/volu me] in Serum or Plasma 362 pg/mL Above high normal [facility] For Heart Failure (HF) diagnosis, refere nce ranges inpatients with dyspnea are based on Sharad SAUL, Et al.Am Linn Cardiol. 2018;71:5036-3012.18-49 years:<= 300 pg/mL Normal, HF unlikely>= 450 pg/mL High probability of HF50-75 years:<= 300 pg/mL Normal, HF unlikely>= 900 pg/mL High probability of HF>75 years:<= 300 pg/mL Normal, HF unlikely>= 1800 pg/mL High probability of HFFor patients with coronary heart disease, the optimalrisk category cut points for incident HF or CVD (<253 pg/mL men, <372 pg/mL women) are based onLena T et al. J Am [place]inn Cardiol. 2007:50:205-14.For patients with existing HF, the optimal riskcategory cut point for HF progression (<300 pg/mL) isbased on Zee SALVADOR et al. Clin Biochem. 2010;43:1405-10.For additional information, please refer tohttp://Known.Inmagic/faq/HUV815(This link is being provided for informational/educational purposes only.) Your request to have a duplicate copy faxed has been acknowledged. Queued to: [id number] ID Date Data Source [id number] 07/28/2020 01:08:05 PM EST [facility] Name Value Range Interpretation Code Description Data Eloisa rce(s) Supporting Document(s) &PDF [facility] LTPKBy0eTxGYDjLp38/EBJfyZEEwz3OhXZhaYKa0OHyiAAJkD4MguPreKUSPTSoFFvHiKLbZPCZOCZIV 0b3 [file] ICAgICAgICAgICAgICAgICAgICAgICAgICAgICAgIC CoTTUvNPDmEOGsAVWwJFFsNIBvSMRwFSWeTEZaDLHzYMJxNXEgRZHpTKNpJHKuMVAlKK6YWNKlGTOeKA AgICAgICAgICAgICAgICAgICAgICAgICAgICAgICAgICAgICAgICAgICAgICAgICAgICAgICAgICAgIC AgICAgICAgICAgICAgICAgICAgICAgICAgICAgICAg BD1JXCLlWOYgQZEzDRKoSITcXDEiYKToWLQbGELsENCvIIYmDEOkJYCwQLJyUDUvGWOjWPXoRRNoTGDi XUXpOUNvFKWlHVViGJWdZBMmRCLsQNVnAFWgATNzDWOaJKDeAOBiLGVnCA8SWVFbPFGpVPFeTFZjQCIe ICAgICAgICAgICAgICAgICAgICAgICAgICAgICAgIC IkYNHzIHLnUUFsNQCnCBHoSGPeRCGdDPTnPBUtPFLkGCEoVWPiBGQgRQZwTCRgPVUaQLJaZG4TLFLfBA AgICAgICAgICAgICAgICAgICAgICAgICAgICAgICAgICAgICAgICAgICAgICAgICAgICAgICAgICAgIC AgICAgICAgICAgICAgICAgICAgICAgICAgICAgICAg OUPwJY8HYLYuBVTfAGRbYONfIADaAFLdZGWrAKYgLXWtVLEaZIAvMOXuUAUwQANiGAEsVIMuNIKpMGTb OSUeUAFqOKYpYTQiYNYiRYYiTKUpYKYlIZQcAXZoTMIzUJYjSHIwVXGmILNsRY4IBXQdDELfKCGlXOSo ICAgICAgICAgICAgICAgICAgICAgICAgICAgICAgIC YzKGLlSPGnGSAxEMRtUAUhUAEfHPJgVTPoXTJbNGHvIGKnWLUsFSSyZMRfAVDgNLSxJDLaFPGwYA7IPV AgICAgICAgICAgICAgICAgICAgICAgICAgICAgICAgICAgICAgICAgICAgICAgICAgICAgICAgICAgIC AgICAgICAgICAgICAgICAgICAgICAgICAgICAgICAg JWPwEBGnQF6CEDCgFTSmBWNaUAXgOQVdQQIwDPQmENDyGEJwKUVpTWDmLXBpPXIhGIVdZGCiLSZcTWFo LHHjMYGkBYStCAGqGZKnCRYnJOJaCQYsEUWaRDTvPXEdPJNlMEPbMAYnWVUmHJFhIZ6QRRHkIYOvZKSe ICAgICAgICAgICAgICAgICAgICAgICAgICAgICAgIC AgICAgICAgICAgICAgICAgICAgICAgICAgICAgICAgICAgICAgICAgICAgICAgICAgICAgICAgICAgIA 7TOQ78ySUtr9D7OCSjHF8fond/Wp4WELdhhrSirQRgVB0EUoVjWF7mrl2BVtLhDC9ssv2APTsPZnBwG9 X4mCKgARAqCNCSQzRkB89sMXxuYx04JFiwQBNlUrMb ZVn8Pd0PHlMjZ9chHLAbEsY8OHDqNnD0LEWoSlLdKBcjJT7Ku0JzvPRaCRc+Zj4ZLE8hx3ZjGRgmQGRg UC4akk2IQKdPRfYkJ5N9zCOrD9X4PLsgRp2ZEMOfDCFhSTgjRGFDAEsgYD9XSC7yeoN9UM3LwFTdKCVh BATrbJVeCHh1P52paBUpYCajMN8QXNT+Luan+Pg0KIC QjWJPmOKWcAnPjOGIKIlBoX07ygNKpJHVeRLVpDUMtGk7QSUDqZ5VrnzRsgHqucqAaWQGdOEXMXU0RUX yxlfOmvJZxqAusSQ69rKvmOF7TAx0YVcThPR4vlp4JsSIiHs4RPZHeHs0NKSErEQZoKJCyRFH1LAMcKb OaKWzqMZQdHZDbEOR8WDPfISTyLP4QQeOhJIOcYAkj NFFsANRrYGQxzs7PMWRzBSXwKZb5NBTfVQHpVGAqZUymUHRyJMMhICs2HWSzBGNuEL2MKgWrJUEhFXQ2 WTPrUYDbAUCqog4QPGSxAXZyVgGyJECtZVBsVJWvWCcgIXZzDIG6YvA6YXMhZSLlZD1ROkJbEAByRLE8 LDYvPDYuRGNkdz0DQDXuJPPpRfP6CMPgVNOoEPHpMB jsKIVwCGB0FPa8UGOtFOJsFJ5MEpPiUXOoISH7FrFnXTCyOHVmif1CPTFyCGCyRmwwUQQdKXRcARIiBU apZEPaNVT5FSG9LTLjOQNpPZ6STsIbCHVaTJqgAjMiVFUdEMXggj5ATZKmIRVfBUY0PbCbWZNuLBMrRV mkXZAxSNM7Bxi5CNQzNGQnYG8ADfQbOVSePNn4Galy WPNxSRVlbp6UDFSmMSMdGFK3YFSaTSBlZKGuCCcmEWRxWRI7GCh2EIRuTIDePP2RSbGxAZNwIIf0UNFi EEDxTGFaaq1UPQJnTRZkMTW8ALFpIJSiNHJgHIu1dfGbsUJjNSd9FZ3AV0QbosGkYySRNi6Dk964QQPt DTGiEz4AB7tpYg1xXFEhIETOJn4CKTf0ZRU7VPf0HE V7GQWcQlw4VoS3NcL2PZThFxGuVDEeWsW+DTn2KbngWGW8PGf1EBSpQUJ3FbncXzi9EFHvJKKbKMA5QP 0mQCCONo9+VYcvpFUgcLmhSULAElDzRwHpWGcsAKWNSm5P ID Date Data Source NT-PRO BNP 05/12/2020 05:57:57 AM EST eCW1 ([facility]) Name Value Range Interpretation Code Description Data Eloisa rce(s) Supporting Document(s) 1019 eCW1 ([facility]) ID Date Data Source PT-INR 05/12/2020 05:57:51 AM EST eCW1 ([facility]) Name Value Range Interpretation Code Description Data Eloisa rce(s) Supporting Document(s) Prothrombin time (PT) 14.4 eCW1 ([facility]) INR in Platelet poor plasma by Coagulation assay 1.10 eCW1 ([facility]) ID Date Data Source ALPHA FETOPROTEIN TUMOR QUANT 05/12/2020 05:57:45 AM EST eCW 1 ([facility]) Name Value Range Interpretation Code Description Data Eloisa rce(s) Supporting Document(s) 7.2 eCW1 ([facility]) ID Date Data Source HEPATITIS PROFILE ACUTE 05/12/2020 05:57:33 AM EST eCW1 ([facility]) Name Value Range Interpretation Code Description Data Eloisa rce(s) Supporting Document(s) 0.1 eCW1 ([facility]) NEGATIVE [facility] [facility] NEGATIVE eCW1 ([facility]) NEGATIVE eCW1 ([facility]) ID Date Data Source VITB12 & FOL 05/12/2020 05:57:30 AM EST eCW1 ([facility]) Name Value Range Interpretation Code Description Data Eloisa rce(s) Supporting Document(s) 628 VITAMIN B12 LEVEL eCW1 ([facility]) > 24.0 FOLATE eCW1 ([facility]) Procedure Social History Code Duration Value Status Description Data Source(s ) Smoking 05/27/2021 12:00:00 AM EST Former Smoker completed Former Smoker eCW1 ([facility]) Alcohol intake 05/04/2021 12:00:00 AM EDT Current drinker of al cohol (finding) completed Current drinker of alcohol (finding) [facility] Smoking 04/20/2021 12:00:00 AM EDT Patient is a former smoker completed Patient is a former smoker MEDENT ([facility]) Smoking 02/23/2021 12:00:00 AM EDT Former Smoker completed Former Smoker eCW1 ([facility]) Smoking 02/23/2021 12:00:00 AM EDT Former Smoker completed Former Smoker eCW1 ([facility]) Alcohol intake 02/01/2021 12:00:00 AM EDT Current drinker of al cohol (finding) completed Current drinker of alcohol (finding) [facility] Smoking 01/21/2021 12:00:00 AM EDT Former Smoker completed Former Smoker eCW1 ([facility]) Alcohol intake 01/18/2021 12:00:00 AM EDT Current drinker of al cohol (finding) completed Current drinker of alcohol (finding) [facility] Alcohol intake 01/13/2021 12:00:00 AM EDT Current drinker of al cohol (finding) completed Current drinker of alcohol (finding) [facility] Smoking 01/05/2021 12:00:00 AM EDT Former Smoker completed Former Smoker eCW1 ([facility]) Smoking 01/05/2021 12:00:00 AM EDT Former Smoker completed Former Smoker eCW1 ([facility]) Smoking 01/05/2021 12:00:00 AM EDT Former Smoker completed Former Smoker eCW1 ([facility]) Smoking 01/05/2021 12:00:00 AM EDT Former Smoker completed Former Smoker eCW1 ([facility]) Alcohol intake 12/30/2020 12:00:00 AM EDT Current drinker of al cohol (finding) completed Current drinker of alcohol (finding) [facility] Alcohol intake 11/30/2020 12:00:00 AM EDT Current drinker of al cohol (finding) completed Current drinker of alcohol (finding) [facility] Smoking 11/27/2020 12:00:00 AM EDT Former Smoker completed Former Smoker eCW1 ([facility]) Smoking 11/27/2020 12:00:00 AM EDT Former Smoker completed Former Smoker eCW1 ([facility]) Alcohol intake 10/26/2020 12:00:00 AM EDT Current drinker of al cohol (finding) completed Current drinker of alcohol (finding) [facility] Cigarette pack-years 10/26/2020 12:00:00 AM EDT UNK completed [facility] Cigarettes smoked current (pack per day) - Reported 10/27/19 12:00:00 AM EDT UNK completed [facility] Smoking 10/26/2020 12:00:00 AM EDT Former smoker completed Former smoker [facility] Smoking 08/17/2020 12:00:00 AM EST Former Smoker completed Former Smoker eCW1 ([facility]) Smoking 08/17/2020 12:00:00 AM EST Former Smoker completed Former Smoker eCW1 ([facility]) Alcohol intake 07/28/2020 12:00:00 AM EST Yes completed [facility] Cigarette pack-years 07/28/2020 12:00:00 AM EST UNK completed [facility] Cigarettes smoked current (pack per day) - Reported 07/28/19 12:00:00 AM EST UNK completed [facility] Smoking 07/28/2020 12:00:00 AM EST Former smoker completed Former smoker [facility] Smoking 06/12/2020 12:00:00 AM EST Former Smoker completed Former Smoker eCW1 ([facility]) Alcohol intake 06/01/2020 12:00:00 AM EST Yes completed [facility] Cigarette pack-years 06/01/2020 12:00:00 AM EST UNK completed [facility] Cigarettes smoked current (pack per day) - Reported 06/01/20 12:00:00 AM EST UNK completed [facility] Smoking 06/01/2020 12:00:00 AM EST Former smoker completed Former smoker [facility] Smoking 05/15/2020 12:00:00 AM EST Former Smoker completed Former Smoker eCW1 ([facility]) Smoking 05/15/2020 12:00:00 AM EST Former Smoker completed Former Smoker eCW1 ([facility]) Smoking 05/15/2020 12:00:00 AM EST Former Smoker completed Former Smoker eCW1 ([facility]) Alcohol intake 05/12/2020 12:00:00 AM EST Yes completed [facility] Cigarette pack-years 05/12/2020 12:00:00 AM EST UNK completed [facility] Cigarettes smoked current (pack per day) - Reported 05/12/20 12:00:00 AM EST UNK completed [facility] Smoking 05/12/2020 12:00:00 AM EST Former smoker completed Former smoker [facility] Vital Signs ID Date Data Source UNK Name Value Range Interpretation Code Description Data Source(s) Body weight 251 [lb_av] 251 [lb_av] eCW1 ([facility]) Body height [in_i] eCW1 ([facility]) Body mass index (BMI) [Ratio] 35.50 kg/m2 35.50 kg/m2 eCW1 ([facility]) Heart rate 59 /min 59 /min eCW1 ([facility]) Respiratory rate 18 /min 18 /min eCW1 ([facility]) Body temperature 95.2 [degF] 95.2 [degF] eCW1 ( [facility]) Systolic blood pressure 148 mm[Hg] 148 mm[Hg] e CW1 ([facility]) Diastolic blood pressure 82 mm[Hg] 82 mm[Hg] eCW1 ([facility]) Systolic blood pressure 110 mm[Hg] 110 mm[Hg] [facility] Diastolic blood pressure 68 mm[Hg] 68 mm[Hg] [facility] Heart rate 62 /min 62 /min [facility] Body height 177.8 cm 177.8 cm [facility] Body weight 115.667 kg 115.667 kg [facility] Body mass index (BMI) [Ratio] 36.59 kg/m2 36.59 kg/m2 [facility] Oxygen saturation in Arterial blood by Pulse oximetry 98 % 98 % [facility] Diastolic blood pressure 69 mm[Hg] 69 mm[Hg] MEDENT ([facility], ) Systolic blood pressure 132 mm[Hg] 132 mm[Hg] M EDENT ([facility], ) Body height 69.5 [in_i] 69.5 [in_i] MEDENT ([facility], ) 5'9.50" Body weight 248.00 [lb_av] 248.00 [lb_av] MEDEN T ([facility], ) Body mass index (BMI) [Ratio] 36.1 kg/m2 36.1 k g/m2 MEDENT ([facility]) Lynx body weight 160 [lb_av] 160 [lb_av] MEDEN T ([facility]) Body weight 112.493 kg 112.493 kg [facility] ([facility]) Body surface area Derived from formula 2.28 m2 2.28 m2 [facility] ([facility]) Lynx body weight 160 [lb_av] 160 [lb_av] MEDEN T ([facility]) Body weight 113.854 kg 113.854 kg [facility] ([facility]) Body surface area Derived from formula 2.29 m2 2.29 m2 [facility] ([facility]) Body mass index (BMI) [Ratio] 36.5 kg/m2 36.5 k g/m2 [facility] ([facility]) Diastolic blood pressure 62 mm[Hg] 62 mm[Hg] [facility] ([facility]) Systolic blood pressure 112 mm[Hg] 112 [facility] Heart rate 63 /min 63 /min [facility] ([facility]) Oxygen saturation in Arterial blood by Pulse oximetry 98 % 98 % [facility] ([facility]) Body height 69.5 [in_i] 69.5 [in_i] [facility] ([facility]) 5'9.50" Body weight 251.00 [lb_av] 251.00 [lb_av] MEDEN T ([facility]) Body weight 258.8 [lb_av] 258.8 [lb_av] eCW1 ([facility]) Body height [in_i] eCW1 ([facility]) Body mass index (BMI) [Ratio] 36.61 kg/m2 36.61 kg/m2 eCW1 ([facility]) Heart rate 66 /min 66 /min eCW1 ([facility]) Respiratory rate 18 /min 18 /min eCW1 ([facility]) Body temperature 97.1 [degF] 97.1 [degF] eCW1 ( [facility]) Systolic blood pressure 122 mm[Hg] 122 mm[Hg] e CW1 ([facility]) Diastolic blood pressure 60 mm[Hg] 60 mm[Hg] eCW1 ([facility]) Systolic blood pressure 100 mm[Hg] 100 mm[Hg] [facility] Diastolic blood pressure 60 mm[Hg] 60 mm[Hg] [facility] Heart rate 71 /min 71 /min [facility] Respiratory rate 22 /min 22 /min [facility] Body height 177.8 cm 177.8 cm [facility] Body weight 114.76 kg 114.76 kg [facility] Body mass index (BMI) [Ratio] 36.30 kg/m2 36.30 kg/m2 [facility] Oxygen saturation in Arterial blood by Pulse oximetry 97 % 97 % [facility] Systolic blood pressure 110 mm[Hg] 110 mm[Hg] [facility] Diastolic blood pressure 62 mm[Hg] 62 mm[Hg] [facility] Heart rate 91 /min 91 /min [facility] Body height 177.8 cm 177.8 cm [facility] Body weight 112.946 kg 112.946 kg [facility] Body mass index (BMI) [Ratio] 35.73 kg/m2 35.73 kg/m2 [facility] Oxygen saturation in Arterial blood by Pulse oximetry 94 % 94 % [facility] Systolic blood pressure 122 mm[Hg] 122 mm[Hg] [facility] Diastolic blood pressure 70 mm[Hg] 70 mm[Hg] [facility] Heart rate 58 /min 58 /min [facility] Body height 177.8 cm 177.8 cm [facility] Body weight 119.296 kg 119.296 kg [facility] Body mass index (BMI) [Ratio] 37.74 kg/m2 37.74 kg/m2 [facility] Oxygen saturation in Arterial blood by Pulse oximetry 97 % 97 % [facility] Body weight 256.4 [lb_av] 256.4 [lb_av] eCW1 ([facility]) Body height [in_i] eCW1 ([facility]) Body mass index (BMI) [Ratio] 36.27 kg/m2 36.27 kg/m2 eCW1 ([facility]) Heart rate 70 /min 70 /min eCW1 ([facility]) Respiratory rate 18 /min 18 /min eCW1 ([facility]) Body temperature 98.2 [degF] 98.2 [degF] eCW1 ( [facility]) Systolic blood pressure 120 mm[Hg] 120 mm[Hg] e CW1 ([facility]) Diastolic blood pressure 70 mm[Hg] 70 mm[Hg] eCW1 ([facility]) Body mass index (BMI) [Ratio] 36.73 kg/m2 36.73 kg/m2 [facility] Oxygen saturation in Arterial blood by Pulse oximetry 96 % 96 % [facility] Systolic blood pressure 108 mm[Hg] 108 mm[Hg] [facility] Diastolic blood pressure 66 mm[Hg] 66 mm[Hg] [facility] Heart rate 62 /min 62 /min [facility] Body height 177.8 cm 177.8 cm [facility] Body weight 116.121 kg 116.121 kg [facility] Body height 177.8 cm 177.8 cm [facility] Body weight 118.389 kg 118.389 kg [facility] Body mass index (BMI) [Ratio] 37.45 kg/m2 37.45 kg/m2 [facility] Oxygen saturation in Arterial blood by Pulse oximetry 95 % 95 % [facility] Systolic blood pressure 89 mm[Hg] 89 mm[Hg] [facility] Diastolic blood pressure 50 mm[Hg] 50 mm[Hg] [facility] Heart rate 68 /min 68 /min [facility] Systolic blood pressure 102 mm[Hg] 102 mm[Hg] [facility] Diastolic blood pressure 60 mm[Hg] 60 mm[Hg] [facility] Heart rate 100 /min 100 /min [facility] Body height 177.8 cm 177.8 cm [facility] Body weight 119.296 kg 119.296 kg [facility] Body mass index (BMI) [Ratio] 37.74 kg/m2 37.74 kg/m2 [facility] Oxygen saturation in Arterial blood by Pulse oximetry 95 % 95 % [facility] Body weight 258 [lb_av] 258 [lb_av] eCW1 ([facility]) Body height [in_i] eCW1 ([facility]) Body mass index (BMI) [Ratio] 36.49 kg/m2 36.49 kg/m2 W1 ([facility]) Heart rate 72 /min 72 /min eCW1 ([facility]) Respiratory rate 18 /min 18 /min eCW1 ([facility]) Body temperature 97.1 [degF] 97.1 [degF] eCW1 ( [facility]) Systolic blood pressure 115 mm[Hg] 115 mm[Hg] e CW1 ([facility]) Diastolic blood pressure 77 mm[Hg] 77 mm[Hg] eCW1 ([facility]) Systolic blood pressure 108 mm[Hg] 108 mm[Hg] [facility] Diastolic blood pressure 70 mm[Hg] 70 mm[Hg] [facility] Heart rate 62 /min 62 /min [facility] Body height 177.8 cm 177.8 cm [facility] Body weight 117.482 kg 117.482 kg [facility] Body mass index (BMI) [Ratio] 37.16 kg/m2 37.16 kg/m2 [facility] Oxygen saturation in Arterial blood by Pulse oximetry 94 % 94 % [facility] Body weight 119.75 kg 119.75 kg [facility] Systolic blood pressure 100 mm[Hg] 100 mm[Hg] [facility] Diastolic blood pressure 60 mm[Hg] 60 mm[Hg] [facility] Heart rate 65 /min 65 /min [facility] Respiratory rate 16 /min 16 /min [facility] Body mass index (BMI) [Ratio] 37.88 kg/m2 37.88 kg/m2 [facility] Oxygen saturation in Arterial blood by Pulse oximetry 94 % 94 % [facility] Body weight 257 [lb_av] 257 [lb_av] eCW1 ([facility]) Body height [in_i] eCW1 ([facility]) Body mass index (BMI) [Ratio] 36.35 kg/m2 36.35 kg/m2 eCW1 ([facility]) Heart rate 62 /min 62 /min eCW1 ([facility]) Respiratory rate 18 /min 18 /min eCW1 ([facility]) Systolic blood pressure 118 mm[Hg] 118 mm[Hg] e CW1 ([facility]) Diastolic blood pressure 82 mm[Hg] 82 mm[Hg] eCW1 ([facility]) Systolic blood pressure 128 mm[Hg] 128 mm[Hg] [facility] Diastolic blood pressure 74 mm[Hg] 74 mm[Hg] [facility] Heart rate 77 /min 77 /min [facility] Body height 177.8 cm 177.8 cm [facility] Body weight 117.028 kg 117.028 kg [facility] Body mass index (BMI) [Ratio] 37.02 kg/m2 37.02 kg/m2 [facility] Oxygen saturation in Arterial blood by Pulse oximetry 96 % 96 % [facility] Body height [in_i] eCW1 ([facility]) Heart rate 73 /min 73 /min eCW1 ([facility]) Respiratory rate 18 /min 18 /min eCW1 ([facility]) Body temperature 97.5 [degF] 97.5 [degF] eCW1 ( [facility]) Systolic blood pressure 120 mm[Hg] 120 mm[Hg] e CW1 ([facility]) Diastolic blood pressure 60 mm[Hg] 60 mm[Hg] eCW1 ([facility]) Body weight 249.2 [lb_av] 249.2 [lb_av] eCW1 ([facility]) Body mass index (BMI) [Ratio] 35.25 kg/m2 35.25 kg/m2 [facility] ([facility]) Systolic blood pressure 108 mm[Hg] 108 mm[Hg] [facility] Diastolic blood pressure 68 mm[Hg] 68 mm[Hg] [facility] Heart rate 56 /min 56 /min [facility] Body height 177.8 cm 177.8 cm [facility] Body weight 111.585 kg 111.585 kg [facility] Body mass index (BMI) [Ratio] 35.30 kg/m2 35.30 kg/m2 [facility] Oxygen saturation in Arterial blood by Pulse oximetry 95 % 95 % [facility] Body weight 245 [lb_av] 245 [lb_av] eCW1 ([facility]) Body height [in_i] eCW1 ([facility]) Body mass index (BMI) [Ratio] 34.65 kg/m2 34.65 kg/m2 W1 ([facility]) Heart rate 97 /min 97 /min eCW1 ([facility]) Respiratory rate 18 /min 18 /min eCW1 ([facility]) Body temperature 97.6 [degF] 97.6 [degF] eCW1 ( [facility]) Systolic blood pressure 122 mm[Hg] 122 mm[Hg] e CW1 ([facility]) Diastolic blood pressure 72 mm[Hg] 72 mm[Hg] eCW1 ([facility]) Systolic blood pressure 112 mm[Hg] 112 mm[Hg] [facility] Diastolic blood pressure 64 mm[Hg] 64 mm[Hg] [facility] Heart rate 108 /min 108 /min [facility] Body height 177.8 cm 177.8 cm [facility] Body weight 111.222 kg 111.222 kg [facility] Body mass index (BMI) [Ratio] 35.18 kg/m2 35.18 kg/m2 [facility] Oxygen saturation in Arterial blood by Pulse oximetry 98 % 98 % [facility] Body weight 247.8 [lb_av] 247.8 [lb_av] eCW1 ([facility]) Body height [in_i] eCW1 ([facility]) Body mass index (BMI) [Ratio] 35.05 kg/m2 35.05 kg/m2 W1 ([facility]) Heart rate 80 /min 80 /min eCW1 ([facility]) Respiratory rate 18 /min 18 /min eCW1 ([facility]) Body temperature 96.2 [degF] 96.2 [degF] eCW1 ( [facility]) Systolic blood pressure 120 mm[Hg] 120 mm[Hg] e CW1 ([facility]) Diastolic blood pressure 72 mm[Hg] 72 mm[Hg] eCW1 ([facility]) Patient Treatment Plan of Care Planned Activity Planned Date Details Description Data Source (s) Amiodarone hydrochloride 200 MG Oral Tablet 04/11/2021 12:00:00 AM EDT [facility] Lactulose 667 MG/ML Oral Solution 02/23/2021 12:00:00 AM EDT eCW1 ([facility]) Lactulose 667 MG/ML Oral Solution 02/23/2021 12:00:00 AM EDT [facility] Lactulose 667 MG/ML Oral Solution 02/23/2021 12:00:00 AM EDT eCW1 ([facility]) Lactulose 667 MG/ML Oral Solution 02/23/2021 12:00:00 AM EDT eCW1 ([facility]) Metoprolol Tartrate 50 MG Oral Tablet 02/01/2021 12:00:00 AM EDT [facility] rivaroxaban 20 MG Oral Tablet 02/01/2021 12:00:00 AM EDT [facility] Spironolactone 25 MG Oral Tablet 02/01/2021 12:00:00 AM EDT [facility] torsemide 100 MG Oral Tablet 02/01/2021 12:00:00 AM EDT [facility] Amiodarone hydrochloride 200 MG Oral Tablet 02/01/2021 12:00:00 AM EDT [facility] Amiodarone hydrochloride 200 MG Oral Tablet 01/18/2021 12:00:00 AM EDT [facility] Spironolactone 25 MG Oral Tablet 01/13/2021 12:00:00 AM EDT [facility] torsemide 100 MG Oral Tablet 01/13/2021 12:00:00 AM EDT [facility] Metoprolol Tartrate 50 MG Oral Tablet 01/13/2021 12:00:00 AM EDT [facility] rivaroxaban 20 MG Oral Tablet 01/05/2021 12:00:00 AM EDT [facility] Spironolactone 50 MG Oral Tablet 12/30/2020 12:00:00 AM EDT [facility] torsemide 20 MG Oral Tablet 12/30/2020 12:00:00 AM EDT [facility] torsemide 20 MG Oral Tablet 12/30/2020 12:00:00 AM EDT [facility] Amiodarone hydrochloride 200 MG Oral Tablet 11/30/2020 12:00:00 AM EDT [facility] Metoprolol Tartrate 100 MG Oral Tablet 11/30/2020 12:00:00 AM EDT [facility] rivaroxaban 20 MG Oral Tablet 11/30/2020 12:00:00 AM EDT [facility] Spironolactone 25 MG Oral Tablet 11/30/2020 12:00:00 AM EDT [facility] Losartan Potassium 50 MG Oral Tablet 11/30/2020 12:00:00 AM EDT [facility] Metoprolol Tartrate 100 MG Oral Tablet 11/30/2020 12:00:00 AM EDT [facility] Metoprolol Tartrate 100 MG Oral Tablet 11/30/2020 12:00:00 AM EDT [facility] Furosemide 40 MG Oral Tablet 10/26/2020 12:00:00 AM EDT [facility] Metoprolol Tartrate 100 MG Oral Tablet 07/28/2020 12:00:00 AM EST [facility] Shingrix 50 mcg/0.5 mL 06/12/2020 12:00:00 AM EST eC1 ([facility]) Metoprolol Tartrate 100 MG Oral Tablet 05/19/2020 12:00:00 AM EST [facility] Metoprolol Tartrate 25 MG Oral Tablet 05/08/2020 12:00:00 AM EDT [facility] Losartan Potassium 50 MG Oral Tablet 12/19/2017 12:00:00 AM EDT [facility] cetirizine hydrochloride 10 MG Oral Capsule 12/19/2017 12:00:00 AM EDT [facility] INDOMETHACIN PO [facility] Losartan Potassium 25 MG Oral Tablet [facility] Colchicine 0.6 MG Oral Tablet [facility]
[2021-06-10] MEDS ORDERED: fentaNYL 100 MCG/2 ML INJECTION (J3010) As Ordered ONE (11:20)
--- NOTE | 2021-06-10 11:32 | ROOR ---
Patient Name: John Gibson Procedure Date: 06/10/2021 11:14 AM Date of : 1960 Age: 60 Room: [facility] Gender: Male Note Status: Finalized Procedure: Upper GI endoscopy Indications: Iron deficiency anemia Providers: Pablo Bettencourt MD Referring MD: ANNA Castro Requesting Provider: Medicines: Monitored Anesthesia Care Complications: No immediate complications. Procedure: Pre-Anesthesia Assessment: - The heart rate, respiratory rate, oxygen saturations, blood pressure, adequacy of pulmonary ventilation, and response to care were monitored throughout the procedure. The Endoscope was introduced through the mouth, and advanced to the second part of duodenum. The upper GI endoscopy was accomplished without difficulty. The patient tolerated the procedure well. Findings: The Z-line was variable and was found 39 cm from the incisors. Biopsies were taken with a cold forceps for histology. The esophagus was normal. The stomach was normal. The examined duodenum was normal. Impression: - Z-line variable, 39 cm from the incisors. Biopsied. - Normal esophagus. - Normal stomach. - Normal examined duodenum. Recommendation: - No varices seen. - In view of iron deficit, would recommend colonoscopy.--Please discuss this with your PCP Procedure Code(s): --- Professional --- 92978, Esophagogastroduodenoscopy, flexible, transoral; with biopsy, single or multiple Diagnosis Code(s): --- Professional --- D50.9, Iron deficiency anemia, unspecified K22.8, Other specified diseases of esophagus CPT copyright 2019 [employer]. All rights reserved. The codes documented in this report are preliminary and upon gis mapping technician review may be revised to meet current compliance requirements. Pablo Bettencourt MD Pablo Bettencourt MD 06/10/2021 11:32:04 AM Electronically signed by Pablo Bettencourt MD Number of Addenda: 0 Note Initiated On: 06/10/2021 11:14 AM Estimated Blood Loss: Estimated blood loss: none.
[2021-06-10 12:05] VITALS: BP 134/76
== END 2021-06-10 12:17 | disposition home or self-care (01) ==
LOC: M OPP 10:32
PROVIDERS: ATTEND Internal Medicine Gastroenterology
DX: D50.9 Iron deficiency anemia, unspecified (principal); K22.89 Other specified disease of esophagus; Z79.899 Other long term (current) drug therapy; Z88.8 Allergy status to other drugs, medicaments and biological substances
CPT/HCPCS: 43239; 88305; J3010

== ENCOUNTER → 2021-07-08 | Outpatient (CLI) | payer OTHER ==
[~2021-07-08] MED LIST changes: -LIDOCAINE 2% 100MG/5ML SDV (FOR ANES.) As Ordered ONE; -NS 1,000 ML IV ONE; -propofoL 200 MG/20 ML VIAL As Ordered ONE
--- NOTE | 2021-07-12 20:55 | SLEEPCENT ---
DATE: 07/08/2021 ORDERED BY: ANNA Woods Nocturnal polysomnography was performed for the titration of pressure therapy in this patient with very severe obstructive sleep apnea syndrome, apnea-hypopnea index of 82.7. For testing a ResMed F20 full face mask of medium size was used, 4 cm of water pressure were applied to the circuit, and the lights were extinguished. Eight hours and 13 minutes of data were reviewed. There were 388 minutes of sleep identified. Sleep latency was mildly prolonged at 17.5 minutes. REM latency was somewhat short at 67.5 minutes. Sleep architecture was good with three REM cycles. Overall sleep efficiency was 80.1%. The electrocardiogram showed what appeared to be a sinus rhythm with an average heart rate of 68 beats per minute. EEG showed normal waveforms for wake and sleep. Respiratory events persisted prompting increases in CPAP pressure. A trial of bilevel pressure was also performed. Best sleep in retrospect was seen at a CPAP pressure of 14. Significant limb activity persisted, however, and the limb movement arousal index on this occasion was 3.9. IMPRESSION: Obstructive sleep apnea syndrome (G47.33). RECOMMENDATION: Nightly use of pressure therapy 14 cm of water. cc: SUZANNE CHIANG MD
== END ==
LOC: M SLEEP 20:00
PROVIDERS: ATTEND Physician Assistant
DX: G47.33 Obstructive sleep apnea (adult) (pediatric) (principal)

== ENCOUNTER → 2021-08-11 | Outpatient (REF) | payer OTHER ==
[~2021-08-11] MED LIST changes: -AMIO200T3 PO; +AMIO200T49 PO; +LOSA25TA13 PO; -LOSA25TA14 PO; +LOSA50TA28 PO; -LOSA50TA88 PO
[2021-08-11 12:47] LABS: ALBUMIN 3.3 GM/DL (3.2-5.2); BILIRUBIN,TOTAL 0.2 MG/DL (0.2-1.0); CALCIUM LEVEL 8.7 MG/DL (8.5-10.1); CREATININE FOR GFR 1.38 MG/DL (0.70-1.30); GLOMERULAR FILTRATION RATE 56.1 (>56); PERCENT SATURATION 7.8 % (19.7-50.0); POTASSIUM SERUM 3.9 MEQ/L (3.5-5.1)
[2021-08-11 13:38] LABS: FOLATE 6.7 NG/ML
[2021-08-11 14:06] LABS: HEMOGLOBIN A1c 5.7 %
== END ==
LOC: M SFHCADAM 10:46
PROVIDERS: ATTEND Physician Assistant
DX: I48.0 Paroxysmal atrial fibrillation (principal); K70.30 Alcoholic cirrhosis of liver without ascites; D50.8 Other iron deficiency anemias; G47.33 Obstructive sleep apnea (adult) (pediatric); G93.40 Encephalopathy, unspecified; R04.0 Epistaxis

== ENCOUNTER → 2021-09-24 | Outpatient (REF) | payer OTHER ==
[2021-09-24 17:26] LABS: BASO % 0.6 % (0.0-1.0); EOS # 0.2 10^3/uL (0.0-0.5); EOS % 2.2 % (0.0-3.0); HEMATOCRIT 37.8 % (42.0-52.0); HEMOGLOBIN 11.7 g/dl (13.5-17.5); LYMPH # 1.8 10^3/uL (1.5-5.0); LYMPH % 24.2 % (24.0-44.0); MEAN CORPUSCULAR HEMOGLOBIN 26.4 pg (27.0-33.0); MEAN CORPUSCULAR VOLUME 85.1 fl (80.0-96.0); MONO # 0.7 10^3/uL (0.0-0.8); NEUTROPHILS # 4.6 10^3/uL (1.5-8.5); NEUTROPHILS % 62.9 % (36.0-66.0); PLATELET COUNT, AUTOMATED 258 10^3/uL (150-450); RED BLOOD COUNT 4.44 10^6/uL (4.30-6.10); WHITE BLOOD COUNT 7.3 10^3/uL (4.0-10.0)
[2021-09-24 17:55] LABS: ALBUMIN 3.7 GM/DL (3.2-5.2); ALT/SGPT 16 U/L (12-78); BILIRUBIN,TOTAL 0.4 MG/DL (0.2-1.0); BLOOD UREA NITROGEN 13 MG/DL (7-18); CARBON DIOXIDE LEVEL 26 MEQ/L (21-32); CHLORIDE LEVEL 107 MEQ/L (98-107); CREATININE FOR GFR 1.01 MG/DL (0.70-1.30); FERRITIN 30 NG/ML (26-388); GLOMERULAR FILTRATION RATE > 60.0 (>56); GLUCOSE, FASTING 73 MG/DL (70-100); IRON (FE) 37 UG/DL (65-175); POTASSIUM SERUM 3.9 MEQ/L (3.5-5.1); RHEUMATOID FACTOR QUANT < 10.0 IU/ML (<15.0); SODIUM LEVEL 140 MEQ/L (136-145); TOTAL IRON BINDING CAPACITY 413 UG/DL (250-450); TOTAL PROTEIN 7.5 GM/DL (6.4-8.2); URIC ACID 6.6 MG/DL (3.5-7.2)
[2021-09-27 16:08] LABS: ANA (HEP2) Negative (.)
== END ==
LOC: M SFHCPLAZ 13:22
PROVIDERS: ATTEND Physician Assistant
DX: G62.9 Polyneuropathy, unspecified (principal); D50.0 Iron deficiency anemia secondary to blood loss (chronic); M1A.9XX1 Chronic gout, unspecified, with tophus (tophi); M19.049 Primary osteoarthritis, unspecified hand

== ENCOUNTER → 2022-04-04 | Outpatient (REF) | payer OTHER ==
[2022-04-04 16:24] LABS: HEMATOCRIT 45.3 % (42.0-52.0); HEMOGLOBIN 15.2 g/dl (13.5-17.5); MEAN CORPUSCULAR HEMOGLOBIN 34.3 pg (27.0-33.0); MEAN CORPUSCULAR HGB CONC 33.6 g/dl (32.0-36.5); MEAN CORPUSCULAR VOLUME 102.3 fl (80.0-96.0); PLATELET COUNT, AUTOMATED 120 10^3/uL (150-450); RED BLOOD COUNT 4.43 10^6/uL (4.30-6.10); WHITE BLOOD COUNT 8.1 10^3/uL (4.0-10.0)
[2022-04-04 17:14] LABS: ALBUMIN 3.2 GM/DL (3.2-5.2); ALT/SGPT 58 U/L (12-78); BLOOD UREA NITROGEN 10 MG/DL (7-18); CALCIUM LEVEL 8.9 MG/DL (8.5-10.1); CARBON DIOXIDE LEVEL 28 MEQ/L (21-32); CHLORIDE LEVEL 96 MEQ/L (98-107); CREATININE FOR GFR 1.08 MG/DL (0.70-1.30); FERRITIN 286 NG/ML (26-388); GLOMERULAR FILTRATION RATE > 60.0 (>56); GLUCOSE, FASTING 95 MG/DL (70-100); IRON (FE) 82 UG/DL (65-175); PERCENT SATURATION 32.7 % (19.7-50.0); POTASSIUM SERUM 3.9 MEQ/L (3.5-5.1); SODIUM LEVEL 134 MEQ/L (136-145); TOTAL IRON BINDING CAPACITY 251 UG/DL (250-450); TOTAL PROTEIN 6.9 GM/DL (6.4-8.2); URIC ACID 8.5 MG/DL (3.5-7.2)
[2022-04-04 17:44] LABS: VITAMIN B12 LEVEL 446 PG/ML (247-911)
== END ==
LOC: M SFHCADAM 11:15
PROVIDERS: ATTEND Physician Assistant
DX: M1A.9XX1 Chronic gout, unspecified, with tophus (tophi) (principal); G62.9 Polyneuropathy, unspecified; I48.0 Paroxysmal atrial fibrillation; D50.8 Other iron deficiency anemias; M25.50 Pain in unspecified joint

== ENCOUNTER → 2022-06-06 | Outpatient (REF) | payer OTHER ==
[2022-06-06 13:08] LABS: BASO # 0.1 10^3/uL (0.0-0.2); BASO % 0.9 % (0.0-1.0); EOS # 0.1 10^3/uL (0.0-0.5); EOS % 0.8 % (0.0-3.0); HEMATOCRIT 41.2 % (42.0-52.0); HEMOGLOBIN 13.7 g/dl (13.5-17.5); LYMPH # 2.2 10^3/uL (1.5-5.0); LYMPH % 22.7 % (24.0-44.0); MEAN CORPUSCULAR HGB CONC 33.3 g/dl (32.0-36.5); MEAN CORPUSCULAR VOLUME 111.4 fl (80.0-96.0); MONO # 0.9 10^3/uL (0.0-0.8); MONO % 9.6 % (2.0-8.0); NEUTROPHILS # 6.3 10^3/uL (1.5-8.5); NEUTROPHILS % 65.6 % (36.0-66.0); PLATELET COUNT, AUTOMATED 143 10^3/uL (150-450); WHITE BLOOD COUNT 9.6 10^3/uL (4.0-10.0)
[2022-06-06 13:31] LABS: INR 1.67
[2022-06-06 14:00] LABS: CARBON DIOXIDE LEVEL 32 MMOL/L (20-31); CHLORIDE LEVEL 93 MMOL/L (98-107)
[2022-06-06 14:01] LABS: POTASSIUM SERUM 3.8 MMOL/L (3.5-5.1); PROSTATIC SPECIFIC AG MONITOR 1.96 NG/ML (< 4.00); SODIUM LEVEL 139 MMOL/L (136-145)
[2022-06-06 14:05] LABS: ALKALINE PHOSPHATASE 224 U/L (46-116)
[2022-06-06 14:06] LABS: CALCIUM LEVEL 8.2 MG/DL (8.5-10.1); GLUCOSE, FASTING 142 MG/DL (60-100)
[2022-06-06 14:07] LABS: BLOOD UREA NITROGEN 11 MG/DL (9-23); VITAMIN B12 LEVEL 811 PG/ML (211-911)
[2022-06-06 14:08] LABS: ALT/SGPT 108 U/L (7.0-40); AST/SGOT 331 U/L (<34); CREATININE FOR GFR 1.25 MG/DL (0.70-1.30); GLOMERULAR FILTRATION RATE > 60.0 (>56)
[2022-06-06 14:09] LABS: BILIRUBIN,TOTAL 0.9 MG/DL (0.3-1.2); TOTAL PROTEIN 6.7 G/DL (5.7-8.2)
[2022-06-08 21:20] LABS: FOLATE 15.7 NG/ML (>5.4)
== END ==
LOC: M SFHCADAM 10:55
PROVIDERS: ATTEND Physician Assistant
DX: K70.30 Alcoholic cirrhosis of liver without ascites (principal); N40.0 Benign prostatic hyperplasia without lower urinary tract symptoms; G62.9 Polyneuropathy, unspecified

== ENCOUNTER → 2022-07-08 | Outpatient (CLI) | payer OTHER | LOC: M RAD 11:48 | PROVIDERS: ATTEND Physician Assistant | DX: K70.30 Alcoholic cirrhosis of liver without ascites (principal) ==

== ENCOUNTER 2022-08-29 19:50 | Inpatient (IN) | payer OTHER ==
[~2022-08-29] VITALS: Ht 177.8 cm; Wt 121.7 kg
[2022-08-29] MEDS ORDERED: NS 1,000 ML IV ONE (21:00)
[2022-08-29 21:48] LABS: ABG BASE EXCESS 5.5 (-2.0-2.0); ABG HCO3 26.6 MEQ/L (22.0-26.0); ABG O2 SATURATION 94.3 % (95.0-99.0); ABG PARTIAL PRESSURE O2 70.9 mmHg (75.0-100.0); ABG STANDARD HCO3 29.4 MEQ/L (22.0-26.0); ABG TOTAL CO2 27.4 MEQ/L (23.0-31.0); ABG pH (ARTERIAL) 7.595 UNITS (7.350-7.450)
[2022-08-29 22:00] LABS: BASO % 0.2 % (0.0-1.0); HEMATOCRIT 32.9 % (42.0-52.0); HEMOGLOBIN 11.5 g/dl (13.5-17.5); LYMPH # 1.2 10^3/uL (1.5-5.0); LYMPH % 8.1 % (24.0-44.0); MEAN CORPUSCULAR HEMOGLOBIN 37.3 pg (27.0-33.0); MEAN CORPUSCULAR VOLUME 106.8 fl (80.0-96.0); MONO % 6.6 % (2.0-8.0); NEUTROPHILS # 12.5 10^3/uL (1.5-8.5); NEUTROPHILS % 83.6 % (36.0-66.0); PLATELET COUNT, AUTOMATED 121 10^3/uL (150-450); RED BLOOD COUNT 3.08 10^6/uL (4.30-6.10); WHITE BLOOD COUNT 14.9 10^3/uL (4.0-10.0)
[2022-08-29] MEDS ORDERED: MIDAZOLAM INJ 2MG/2ML VIAL IV ONE (22:15)
[2022-08-29 22:21] LABS: ETHYL ALCOHOL (ETHANOL) 0.004 % (0.000-0.010)
[2022-08-29 22:22] LABS: CPK CREATINE PHOSPHOKINASE 360 U/L (46-171); SALICYLATE LEVEL < 3.0 MG/DL (<30)
[2022-08-29 22:26] LABS: ALBUMIN 2.1 G/DL (3.2-5.2); ALKALINE PHOSPHATASE 224 U/L (46-116); ALT/SGPT 76 U/L (7.0-40); AST/SGOT 166 U/L (<34); BILIRUBIN,DIRECT 6.3 MG/DL (<0.4); BILIRUBIN,TOTAL 11.1 MG/DL (0.3-1.2); BLOOD UREA NITROGEN 36 MG/DL (9-23); CALCIUM LEVEL 8.4 MG/DL (8.3-10.6); CARBON DIOXIDE LEVEL 29 MMOL/L (20-31); CHLORIDE LEVEL 85 MMOL/L (98-107); CK-MB VALUE MASS 4.7 NG/ML (<3.6); CREATININE FOR GFR 2.28 MG/DL (0.70-1.30); GLOMERULAR FILTRATION RATE 31.3 (>49); GLUCOSE, FASTING 120 MG/DL (74-106); POTASSIUM SERUM 3.9 MMOL/L (3.5-5.1); SODIUM LEVEL 127 MMOL/L (136-145); THYROID STIMULATING HORMONE 13.666 uIU/ML (0.55-4.78); TOTAL PROTEIN 6.9 G/DL (5.7-8.2)
[2022-08-29 22:29] LABS: ACETAMINOPHEN LEVEL < 2.0 UG/ML (10.0-20.0)
[2022-08-29] MEDS ORDERED: NS IV ONE (22:30)
[2022-08-29 22:32] LABS: OSMOLALITY SERUM 281 MOSM/KG (275-295)
[2022-08-29] MEDS: METOPROLOL 5 MG/5 ML VIAL IV SCH ×4 (22:35→23:00)
[2022-08-29] MEDS ORDERED: MIDAZOLAM INJ 2MG/2ML VIAL IV STA (23:44)
[2022-08-30] VITALS (10 sets, daily range): BP systolic 103–132; BP diastolic 60–89
[2022-08-30] MEDS ORDERED: LORazepam 2 MG TAB PO PRN
[2022-08-30] MEDS ORDERED: cefTRIAXone SOD 1GM VIAL IM SCH
[2022-08-30 00:03] LABS: CK-MB VALUE MASS 3.5 NG/ML (<3.6)
[2022-08-30 00:06] LABS: MB/CK RELATIVE INDEX 1.09 (< OR =4)
[2022-08-30 00:06] LABS: RSV AMPLIFICATION NEGATIVE (NEGATIVE)
[2022-08-30] MEDS ORDERED: MOM 30ML SUSPENSION UDC PO PRN (00:15)
[2022-08-30] MEDS ORDERED: cefTRIAXone SOD 1 GM in D5W MINI-BAG PLUS 50 ML IV SCH (01:00)
[2022-08-30] MEDS ORDERED: ELIQ5TAB PO (01:01)
[2022-08-30] MEDS ORDERED: METO1TAB87 PO (01:01)
[2022-08-30] MEDS ORDERED: VITATAB73 PO (01:01)
[2022-08-30] MEDS ORDERED: HOME MED LIST COMPLETE! XX SCH (01:05)
[2022-08-30 01:12] LABS: AMPHETAMINES LEVEL URINE NEGATIVE (NEGATIVE); BENZODIAZEPINES URINE NEGATIVE (NEGATIVE)
[2022-08-30 01:13] LABS: BARBITURATES URINE NEGATIVE (NEGATIVE); CANNABINOIDS URINE NEGATIVE (NEGATIVE); COCAINE METABOLITE URINE NEGATIVE (NEGATIVE); METHADONE URINE NEGATIVE (NEGATIVE); OPIATES URINE NEGATIVE (NEGATIVE); PHENCYCLIDINE URINE NEGATIVE (NEGATIVE)
[2022-08-30] MEDS ORDERED: LORazepam 2 MG TAB XX PRN (01:45)
[2022-08-30] MEDS ORDERED: LORazepam 2 MG/ML 1ML VIAL IV PRN (01:50)
[2022-08-30 01:54] LABS: INR 2.56; PROTHROMBIN TIME 27.9 SECONDS (12.5-14.5)
[2022-08-30] MEDS ORDERED: LR IV ONE (02:00)
[2022-08-30] MEDS ORDERED: METOPROLOL TART 25 MG TABLET PO ONE (02:00)
[2022-08-30] MEDS: rifAXIMin 550 MG TAB (XIFAXAN) PO SCH ×2 (02:14→09:00)
[2022-08-30] MEDS: LACTULOSE 20GM/30ML SYRUP UDC PO SCH ×2 (02:15→05:01)
[2022-08-30] MEDS ORDERED: METOPROLOL 5 MG/5 ML VIAL IV STA (04:01)
[2022-08-30] MEDS: METOPROLOL 5 MG/5 ML VIAL IV SCH ×5 (04:12→04:26)
[2022-08-30] MEDS: THIAMINE INJection 500 MG in NS 100 ML IV SCH ×2 (04:59→09:36)
[2022-08-30 05:23] LABS: HEMATOCRIT 30.2 % (42.0-52.0); HEMOGLOBIN 10.6 g/dl (13.5-17.5); MEAN CORPUSCULAR HEMOGLOBIN 37.1 pg (27.0-33.0); MEAN CORPUSCULAR HGB CONC 35.1 g/dl (32.0-36.5); MEAN CORPUSCULAR VOLUME 105.6 fl (80.0-96.0); PLATELET COUNT, AUTOMATED 116 10^3/uL (150-450); RED BLOOD COUNT 2.86 10^6/uL (4.30-6.10); WHITE BLOOD COUNT 15.6 10^3/uL (4.0-10.0)
[2022-08-30 05:47] LABS: CALCIUM LEVEL 7.6 MG/DL (8.3-10.6); CREATININE FOR GFR 2.05 MG/DL (0.70-1.30); GLOMERULAR FILTRATION RATE 35.4 (>49); MAGNESIUM LEVEL 1.8 MG/DL (1.8-2.4); POTASSIUM SERUM 3.8 MMOL/L (3.5-5.1)
[2022-08-30 05:48] LABS: FREE T4 0.63 NG/DL (0.89-1.76)
[2022-08-30] MEDS ORDERED: DOCUSATE SODIUM 100MG CAPSULE PO SCH (09:00)
[2022-08-30] MEDS ORDERED: diltiaZEM 125 MG in NS 100 ML IV SCH (09:00)
[2022-08-30] MEDS ORDERED: FOLIC ACID 1MG TAB PO SCH (09:00)
[2022-08-30] MEDS ORDERED: METOPROLOL TART 25 MG TABLET PO SCH (09:00)
[2022-08-30] MEDS ORDERED: MULTIVITAMINS/MINERALS THERAP 1 TAB PO SCH (09:00)
[2022-08-30] MEDS ORDERED: ONDANSETRON 4MG 2ML VIAL IV PRN (11:05)
[2022-08-30] MEDS ORDERED: ACETAMINOPHEN 650MG SUPP PR PRN (11:05)
[2022-08-30] MEDS ORDERED: FLEET ENEMA PR PRN (11:05)
[2022-08-30] MEDS ORDERED: BISACODYL 10MG SUPP PR PRN (11:05)
[2022-08-30] MEDS ORDERED: ATROPINE SULFATE 1% OPHTH SOLN 2ML BTL SL PRN (11:05)
[2022-08-30] MEDS ORDERED: HYOSCYAMINE SULFATE 0.125 MG SUBL TABLET PO PRN (11:05)
[2022-08-30] MEDS ORDERED: SCOPOLAMINE 1MG TRANSDERMAL PATCH TOP PRN (11:05)
[2022-08-30] MEDS: MORPHINE 2 MG/ML 1ML VIAL IV PRN ×2 (11:55→16:32)
[2022-08-30] MEDS: LORazepam 2 MG/ML 1ML VIAL IV PRN ×2 (11:55→16:33)
[2022-08-31] MEDS: LORazepam 2 MG/ML 1ML VIAL IV PRN ×2 (00:18→13:01)
[2022-08-31] MEDS: MORPHINE 2 MG/ML 1ML VIAL IV PRN ×3 (00:18→12:42)
== END 2022-08-31 15:10 | disposition expired | DRG 720 ==
LOC: EDBD 19:50 → M ED 19:50 → M ED INP 23:56 → M ICU 08-30 01:22
PROVIDERS: ADMIT Family Medicine; ATTEND Family Medicine
DX: A41.9 Sepsis, unspecified organism (principal); K72.00 Acute and subacute hepatic failure without coma; J96.01 Acute respiratory failure with hypoxia; K76.7 Hepatorenal syndrome; G93.41 Metabolic encephalopathy; J90 Pleural effusion, not elsewhere classified; N17.9 Acute kidney failure, unspecified; K65.2 Spontaneous bacterial peritonitis; F10.231 Alcohol dependence with withdrawal delirium; E72.20 Disorder of urea cycle metabolism, unspecified; E87.20 Acidosis, unspecified; I50.9 Heart failure, unspecified; D69.6 Thrombocytopenia, unspecified; I42.6 Alcoholic cardiomyopathy; I48.91 Unspecified atrial fibrillation; E87.1 Hypo-osmolality and hyponatremia; I48.92 Unspecified atrial flutter; K70.31 Alcoholic cirrhosis of liver with ascites; K76.82 Hepatic encephalopathy; Z66 Do not resuscitate; D53.9 Nutritional anemia, unspecified; E86.0 Dehydration; G47.33 Obstructive sleep apnea (adult) (pediatric); Z87.891 Personal history of nicotine dependence; Z20.822 Contact with and (suspected) exposure to COVID-19; Z79.01 Long term (current) use of anticoagulants; Z79.899 Other long term (current) drug therapy; I46.9 Cardiac arrest, cause unspecified